=== PATIENT | female | born 1965 | race Caucasian/White ===

== ENCOUNTER 2018-05-21 07:41 | Emergency (ER) | payer MEDICAID, SELFPAY ==
[2018-05-21 07:45] VITALS: BP 121/62; PULSE 96; RESP 18; TEMP 36.5; O2SAT 100
[2018-05-21] MEDS: Penicillin V POTASSIUM 500 MG TAB PO (08:22)
--- NOTE | 2018-05-21 08:37 | ED.GENADUL_ITS ---
Discharge Plan Disposition Patient Disposition: HOME Condition: Stable Discharge Details Chief Complaint: DentalOral Clinical Impression: Swelling of left side of face, Pain, dental, Dental caries, Dental infection Primary Care Provider: NONE,NONE ED Provider: Ariela Melo Home Meds and New Rx's Prescriptions: New penicillin V potassium 500 mg tablet 500 mg PO QID 7 Days Qty: 28 RF: 0 Discharge Instructions Instructions: Dental Abscess (ED), Dental Caries (ED), Toothache (ED) Additional Instructions: You appear to have a dental infection but there is no obvious abscess on exam today. Your facial swelling is likely due to a dental infection. Another possibility could be a stone within a salivary duct in your face. Also use lemon drops to see if this helps with any left-sided facial swelling which can help stimulate salivary gland to produce saliva which can expel a possible stone. Take the antibiotics until finished. Alternate Tylenol and Motrin as needed and directed for pain. Safely wean yourself off of alcohol under the direction of a physician or outpatient rehab. Follow-up with a primary care doctor, dentist, and outpatient rehab as directed by care management. Return immediately to the emergency department with any worsening or new concerning symptoms such as fever, difficulty swallowing, or breathing. Discharge Data Discharge Physician: Ariela Melo Medical Decision Making Patient is a 53-year-old female with a history of daily alcohol abuse and tobacco abuse who presents with dental pain ?1 month and left-sided facial swelling and pain for the past 2 weeks. Vitals stable on arrival. No fever. Patient appears nontoxic, airway intact, speaking in full sentences, no trismus. She appears disheveled and older than stated age. She has moderate edema, induration and tenderness to palpation of left side of face overlying mandible. There is no submandibular swelling, induration. There is no obvious dental abscess noted but there is extensive dental caries with tenderness to palpation of left upper and lower jaw. Diagnosis likely includes dental infection or blocked salivary duct stone. I suspect more likely a dental infection. No evidence of Byron's angina. Due to patient's significant left facial swelling, I suggested IV, lab work and CT imaging but patient is refusing and is just requesting antibiotics at this time. She is also requesting a prescription for Tylenol with Codeine. I expressed my concern about alcohol intake and narcotics and will give 1 dose of Tylenol with Codeine here as well as a dose of penicillin. Patient does not have a dentist or primary care doctor. Patient had requested to speak with social work regarding payment. Will have care management discuss with patient in the emergency department regarding follow-up with a primary care doctor, dentist, and outpatient rehab if pt desires. We discussed the dangers of abruptly stopping alcohol and the need to safely wean herself off under the direction of his physician or outpatient rehab. Patient was instructed to return immediately to the emergency department with any worsening symptoms such as fever, difficulty swallowing or breathing. Prescription for penicillin given for home. Patient was also instructed to use lemon drops to see if this helps with left-sided facial swelling. HPI General Mode of arrival: ambulatory . Date/Time Provider Initiated Documentation: 05/21/18 07:43 . Limitations to Documentation: no limitations . Information obtained by: patient . HPI Narrative: Patient is a 53-year-old female with no known past medical history presents with left upper and lower dental pain for the past month, and left-sided facial swelling and pain for the past 2 weeks. She states she has been eating and drinking normally and denies recent fever. She states she only came here for antibiotics. She does admit to drinking 32 beers every 3 days and soaking 2 packs of cigarettes daily. She does not have a primary care doctor or a dentist. History: None Surgical history: None Social history: Smokes tobacco, 2 packs daily, daily alcohol use, drinks a 32 case of beer every 3 days, denies drugs Medications: None regularly, aspirin occasionally for pain Allergies: Negative PCP: None Dentist: None Related Data Previous Rx's Medication Instructions Recorded penicillin V potassium 500 mg PO QID 7 Days #28 tab 05/21/18 Allergies Allergy/AdvReac Type Severity Reaction Status Date / Time No Known Allergies Allergy Unverified 05/21/18 07:52 General Stated Complaint: DentalOral LILLIAN: 3 Review of Systems Review of Systems All systems reviewed & are unremarkable except as noted in HPI and below Constitutional Denies chills, Denies excessive sweating, Denies fatigue, Denies fever(s), Denies weakness and Denies weight loss Eyes Patient Reports system reviewed and no additional complaints, except as docu and Denies blurry vision ENT Reports dental pain, Denies vertigo, Denies dizziness, Denies otalgia, Reports facial pain, Denies mouth lesions, Denies nasal congestion, Denies nasal discharge, Denies neck pain, Denies sore throat, Denies throat swelling and Denies tongue swelling Cardiovascular Denies chest pain, Denies syncope, Denies rapid heart rate and Denies dyspnea Respiratory Denies dyspnea Gastrointestinal Denies abdominal pain, Denies diarrhea and Denies vomiting Genitourinary Denies hematuria, Denies dysuria and Denies flank pain Musculoskeletal Denies back pain, Denies joint swelling and Denies neck pain Integumentary/Breasts Denies lesions and Denies rash Neurologic Denies behavioral changes, Denies confusion, Denies vertigo, Denies dizziness, Denies syncope and Denies weakness Psychiatric Denies behavioral changes, Denies confusion and Denies depression Endocrine Denies excessive sweating and Denies fatigue Hematologic/Lymphatic Denies easy bruising and Denies lymphadenopathy Allergic/Immunologic Denies throat swelling and Denies tongue swelling PFS Social History Smoking/Tobacco Use Status: Current every day Exam Const General: cooperative, no acute distress and disheveled Nutritional Appearance: other (Older than stated age) Orientation: alert, awake and oriented x3 HENMT Head: normal to inspection Ears: hearing grossly normal bilaterally, external ears normal and TM's normal bilaterally General nose exam: external nose normal Face and sinus: other (Moderate edema, induration and tenderness to palpation of left side of face extending from just below left TMJ to left angle and ramus of mandible. There is no erythema, fluctuance or rash noted.) Mouth: oropharynx normal, moist mucous membranes and malodorous breath Teeth and gingiva: other (Extensive dental caries throughout. Multiple missing teeth on left upper and left lower. There is tenderness to palpation of tooth approximate #11 and 23 with mild edema around tooth but no obvious discrete abscess. There is edema noted on the left inner buccal mucosa but no obvious abscess. ) Throat: posterior oropharynx normal Eyes General: appearance normal, both eyes and all related structures Eyelids: eyelids normal Pupils: PERRL EOM: EOM intact bilaterally Neck Neck: normal visual inspection, full ROM, no meningeal signs, trachea midline, supple, no anterior neck swelling and No submandibular swelling Thyroid: not firm and no masses Lymphatic: no lymphadenopathy noted Chest Chest: normal inspection of the chest Resp Effort & Inspection: normal respiratory effort and able to speak in complete sentences Auscultation: clear to auscultation bilaterally Cardio Rate: regular rate Rhythm: regular rhythm GI Inspection: normal to inspection Skin General skin exam: no rashes or lesions noted Neuro General: alert, awake and oriented x3 Cognition: normal cognition Speech: speech normal Extrem General: normal to inspection, full ROM and normal capillary refill Psych Appearance: grossly normal Mental Status: mental status grossly normal Speech and Movement: speech and movement normal Affect: normal affect Thought Process: normal Course Vital Signs Temperature 97.7 F 05/21/18 07:45 Pulse 96 H 05/21/18 07:45 Respiratory Rate 18 05/21/18 07:45 Blood Pressure 121/62 05/21/18 07:45 Pulse Oximetry 100 05/21/18 07:45 Temperature 97.7 F 05/21/18 07:45 Pulse 96 H 05/21/18 07:45 Respiratory Rate 18 05/21/18 07:45 Blood Pressure 121/62 05/21/18 07:45 Pulse Oximetry 100 05/21/18 07:45
--- NOTE | 2018-05-21 08:42 | PDOC.ERCMPRO ---
- If Service Date Differs Date of service: 05/21/18 Time of Service: 08:42 Care Management Progress Note DOMINIQUE received notification from KEATON León RN, that Harmony is in the ER due to dental pain and that she has no insurance. CM met with Harmony and her SO. Harmony states that she has not had insurance since she moved back to [place] from [place] 16 years ago. CM discussed [facility] with Harmony to assist with applying for [employer], Harmony is agreeable to this. CM discussed Penicillin prescription, Harmony' SO states that they can afford to pay for this out of pocket today. CM stressed to Harmony going to [facility] on Wednesday to discuss insurance options so that she can then go to the dentist once she has insurance. Harmony is agreeable with the above plan. DOMINIQUE spoke with KEATON León RN, regarding the above.
== END 2018-05-21 08:45 | disposition home or self-care (01) ==
PROVIDERS: Emergency Provider Physician Assistant
DX: R22.0 Localized swelling, mass and lump, head (principal); K04.7 Periapical abscess without sinus; K02.9 Dental caries, unspecified
CPT/HCPCS: 99283

== ENCOUNTER 2018-06-29 16:04 | Emergency (ER) | payer MEDICAID, SELFPAY ==
[2018-06-29 16:09] VITALS: BP 174/115; PULSE 122; RESP 22; TEMP 36.2; O2SAT 99
--- NOTE | 2018-06-29 16:52 | W.ED.GENAD ---
Discharge Plan Disposition Patient Disposition: HOME Condition: Poor Discharge Details Chief Complaint: Cellulitis Clinical Impression: Facial swelling, Lymphadenopathy Primary Care Provider: NONE,NONE ED Provider: Kaya Henry Home Meds and New Rx's Prescriptions: New clindamycin HCl 150 mg capsule 450 mg PO TID Qty: 63 RF: 0 oxycodone 5 mg capsule 5 mg PO Q6H Qty: 10 RF: 0 Continue acetaminophen [Tylenol Extra Strength] 500 mg Tablet 500 mg PO DAILY RF: 0 ibuprofen [Advil] 200 mg Tablet 800 mg PO DAILY RF: 0 Discharge Instructions Additional Instructions: Encourage hydration. You may continue with Tylenol and/or ibuprofen as needed for discomfort. Augment this with the oxycodone as prescribed. Please take this only as prescribed. Please call Dr. Wilson first thing tomorrow morning to schedule follow-up appointment and biopsy as recommended. If you develop fever/chills, difficulty breathing, difficulty swallowing or other new/worsening symptoms please seek care urgently once again. Referrals: Ivan Wilson [ [facility] STAFF PHYSICIAN] - ([phone]) Medical Decision Making Patient 53-year-old female presenting today with chief complaint left-sided facial swelling and pain. She reports that symptoms began in November or December of this year. States that she has had diffuse left lower dental pain. Was seen in the emergency department almost 2 months ago at which time the patient had notable facial swelling and there is concern for possible dental infection. She is placed on penicillin. Did not immediately follow up. However, when she saw her dentist a few weeks ago, they are quite concerned with her findings in the posterior lower dentition and had concern for possible malignancy. They referred the patient to an oral surgeon at [facility]. She reports that the oral surgeon at [facility] obtained a CT scan of her head or neck and recommended biopsy of the area. Patient subsequently canceled the biopsy and has not been wanting to go forward with surgical intervention. No definitive diagnosis has been made as of yet. She presents to the ER today with a notable increase in swelling on the left side of her face. Patient is quite tender over this area. She is very unusual shaped area of swelling with a smaller focal area of whitening with a small white spots on the outside. This area is not fluctuant but seems rather firm. Patient is incredibly tender. The area is not warm. She is afebrile. Reports she is been afebrile at home. Denies any systemic signs of illness. Given the length of symptoms, I am concerned that this is not infection you may be malignancy as the patient is a heavy smoker. Plan to obtain the reports from [facility] and review. Patient does have trismus but posterior oropharynx is unremarkable. I do not appreciate any unilateral swelling, tonsils are normal, uvula is midline. Patient's been swallowing well, handling secretions. Denies any pain in her throat, no shortness of breath or difficulty swallowing. No sublingual swelling or abnormality noted. Reviewed Dr. Wilson's note. Patient was seen on 06/03/2018 by oral surgeon. At that point, he reported that swelling started 3 weeks prior on the left side. He reports that the antibiotics that had been trialed by the dentist did seem to help with her swelling. Patient described at that time that her trismus has improved after beginning the antibiotics reviewed his physical exam findings which seem quite similar to what I am noting today although today, patient's facial swelling seems to be increased particularly with this focal area of whitening. He advised at that point and that findings are suggestive of neoplastic and bony invasion and it was at that point that the CT was obtained. CT impression that was obtained on the same day reviewed by radiologist. They advised that it is suggestive of highly destructive process involving the left mandible with adjacent soft tissue expansion centered about the retromolar trigone region. 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 This process is highly concerning for aggressive neoplasm although infection and superimposed infection not excluded. They do note asymmetry of the prominent left-sided lymph nodes which may be reactive or represent metastatic disease Spoke with Dr. Wilson's nurse who is able to be in contact with him. Physician is currently in the operating room. She relayed my concerns to the physician who advised beginning the patient again on antibiotics. Patient had canceled her biopsy that had been recommended by him. He advised the patient needs to come down as soon as possible for biopsy for definitive diagnosis. We will place the patient back on antibiotics as this seemed to have helped with symptomatic management. At this point, I am concerned primarily for neoplastic disease given the chronicity of her symptoms and the patient is otherwise presenting well. She appears to have a firm swollen area consistent with neoplastic disease on exam. However, as a CT suggest, she may also have a superimposed infection for which she will begin her on clindamycin. Patient does not have a primary care, I have asked her acute care nurse help facilitate follow-up. I have also asked the patient to call Dr. Wilson's office tomorrow. She and I discussed the findings of the CT scan as these had not been relayed to her as of yet. She is in agreement with contacting him and reports that she will not delay this any longer. She is given strict return precautions, particularly for spreading of the swelling. All of her questions and concerns were addressed and she is in agreement this plan. Patient is requesting pain medication she reports that Tylenol and ibuprofen is not working well for discomfort. Given the findings of the CT and patient's physical exam findings, I feel that narcotics are appropriate at this point. Patient will be given a small prescription for oxycodone. She is given strict usage instructions. Patient did sign a narcotic agreement form HPI General Mode of arrival: ambulatory. Date/Time Provider Initiated Documentation: 06/29/18 16:17. Limitations to Documentation: no limitations. Information obtained by: patient and family. History of Present Illness 53 year old F presents to the emergency department with the chief complaint of left sided facial pain and swelling, described as moderate, Quality is described as stabbing and aching, and is localized to the face. Patient reports no radiation. Patient started experiencing this month(s) (began in November) and it has been constant. No relieving factors improve symptom(s), Movement worsens symptoms (opening of mouth, chewing) . Patient notes no other symptoms.; denies confusion, chest pain, cough, diaphoresis, fever/chills, headaches, loss of appetite, malaise, nausea/vomiting, rash, shortness of breath, syncope and weakness. Patient did receive the following treatments prior to arrival, other (has been on multiple rounds of antibiotics) Related Data Home Medications Medication Instructions Recorded Confirmed acetaminophen [Tylenol Extra 500 mg PO DAILY 06/29/18 06/29/18 Strength] clindamycin HCl 450 mg PO TID #63 cap 06/29/18 ibuprofen [Advil] 800 mg PO DAILY 06/29/18 06/29/18 oxycodone 5 mg PO Q6H #10 cap 06/29/18 Previous Rx's Medication Instructions Recorded clindamycin HCl 450 mg PO TID #63 cap 06/29/18 oxycodone 5 mg PO Q6H #10 [facility] 06/29/18 Allergies Allergy/AdvReac Type Severity Reaction Status Date / Time No Known Allergies Allergy Unverified 05/21/18 07:52 General Stated Complaint: Cellulitis LILLIAN: 3 Review of Systems Constitutional Reports as per HPI and Denies headache(s) Eyes Denies change in vision, Denies eye discharge and Denies irritation ENT Reports as per HPI, Denies change in voice, Denies ear discharge, Reports otalgia, Reports facial pain, Denies headache(s), Denies hearing loss, Denies lip swelling, Reports mouth lesions, Denies nasal congestion, Denies nasal discharge, Denies nasal obstruction, Denies neck mass, Reports neck pain, Denies nose pain, Denies sinus pain, Denies sinus pressure, Denies sore throat, Denies throat swelling and Denies tongue swelling Cardiovascular Denies chest pain, Denies lightheadedness and Denies palpitations Musculoskeletal Reports neck pain Neurologic Denies headache(s) Endocrine Denies palpitations Allergic/Immunologic Denies lip swelling, Denies throat swelling and Denies tongue swelling Exam Const General: cooperative, no acute distress, well developed and anxious Nutritional Appearance: average body habitus and well nourished Orientation: alert and awake [facility] Head: normal to inspection Ears: hearing grossly normal bilaterally, external ears normal and TM's normal bilaterally General nose exam: external nose normal and nares normal Face and sinus: abnormal facial exam (Patient has notable swelling in the left side of the face with posterior over the TMJ and parotid gland. Tissue is erythematous. Patient has a focal area more raised tissue approximately 2 cm in diameter. This is white with small copper etcher raised areas scattered about the focal area. No fluctuance), sinuses nontender, no crepitus, no ecchymosis, erythema, no fluctuance, no sinus tenderness and No dry mucous membranes Face images: 1. area of swelling 2. focal area of blanching with several white raised areas centrally Mouth: lip normal, tongue normal, moist mucous membranes abnormal, no muffled voice and trismus Teeth and gingiva: abnormal dentition (Patient has globally poor dentition. Gums have receded greatly over the front lower dentition where patient is also endorsing discomfort.) Throat: posterior oropharynx normal, tonsils normal and uvula midline Eyes General: appearance normal, both eyes and all related structures Neck Neck: lymphadenopathy noted (Patient has Palpable lymphadenopathy along the left side) Resp Effort & Inspection: normal respiratory effort, able to speak in complete sentences and no respiratory distress Auscultation: clear to auscultation bilaterally, no rales, no rhonchi and no wheezes Cardio Rate: regular rate Rhythm: regular rhythm Heart Sounds: S1 normal and S2 normal Skin General skin exam: rashes and/or lesions noted (As above) Neuro General: alert and awake Cognition: normal cognition Speech: speech normal Gait: normal gait Psych Appearance: grossly normal and well kempt Mental Status: mental status grossly normal Speech and Movement: delayed speech Affect: anxious affect Course Vital Signs Temperature 36.2 C L 06/29/18 16:09 Pulse 122 H 06/29/18 16:09 Respiratory Rate 22 06/29/18 16:09 Blood Pressure 174/115 H 06/29/18 16:09 Pulse Oximetry 99 06/29/18 16:09 Temperature 36.2 C L 06/29/18 16:09 Temperature Source Tympanic 06/29/18 16:09 Pulse 122 H 06/29/18 16:09 Respiratory Rate 22 06/29/18 16:09 Respiratory Effort 06/29/18 16:16 Blood Pressure 174/115 H 06/29/18 16:09 Pulse Oximetry 99 06/29/18 16:09 Oxygen Delivery Method Room Air 06/29/18 16:09 Oxygen Flow Rate 0 06/29/18 16:09
[2018-06-29 17:27] VITALS: BP 133/97; PULSE 129; RESP 18; TEMP 36.8; O2SAT 99
--- NOTE | 2018-06-30 13:57 | PDOC.ERCMPRO ---
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 Referral faxed to [facility].
--- NOTE | 2018-06-30 13:58 | CMPROGNOTE_ITS ---
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 Referral faxed to [facility].
--- NOTE | 2018-07-01 14:16 | PDOC.ERCMPRO ---
Care Management Progress Note DOMINIQUE received call from Tin Muro advocating for Harmony to have PCP follow up. He shared concerns around Harmony's diagnosed aggressive tumor and reported follow up with [facility] was not scheduled until August. DOMINIQUE reviewed Allison: ED CM note and spoke with [facility] who reported Harmony has a scheduled appointment for 07/06/18@1040. Lead Pharmacy Technician also advised new patient paperwork had been mailed but phone contact numbers listed on demographics were unsuccessful. DOMINIQUE provided Tin's contact number [phone]. DOMINIQUE then called Harmony and Tin to confirm appointment and advise of paperwork and updated contacts.
--- NOTE | 2018-07-01 15:44 | CMPROGNOTE_ITS ---
Care Management Progress Note DOMINIQUE received call from Tin Muro advocating for Harmony to have PCP follow up. He shared concerns around Harmony's diagnosed aggressive tumor and reported follow up with [facility] was not scheduled until August. DOMINIQUE reviewed Allison: ED CM note and spoke with [facility] who reported Harmony has a scheduled appointment for 07/06/18@1040. Marker Assembler also advised new patient paperwork had been mailed but phone contact numbers listed on demographics were unsuccessful. DOMINIQUE provided Tin's contact number [phone]. DOMINIQUE then called Harmony and Tin to confirm appointment and advise of paperwork and updated contacts.
== END 2018-06-29 17:47 | disposition home or self-care (01) ==
LOC: ER 17:35
PROVIDERS: Emergency Provider Physician Assistant
DX: R22.0 Localized swelling, mass and lump, head (principal); L04.9 Acute lymphadenitis, unspecified
CPT/HCPCS: 99283

== ENCOUNTER 2018-07-18 16:49 | Outpatient (REF) | payer MEDICAID, SELFPAY ==
[2018-07-18 19:26] LABS: HCT 36.6 % (36.0-46.0); Mean Corp. HGB Concentration 32.8 g/dL (32.0-36.0); Mean Corpuscular Hemoglobin 32.5 pg (27.0-33.0); Mean Corpuscular Volume 99.2 fL (80-95); Mean Platelet Volume 10.2 fL (8.0-11.0); Platelet Count 277 x1000/uL (130-400); RBC 3.69 m/cumm (4.00-5.20); RBC Distribution Width 16.4 % (11.7-14.6); White Blood Cell Count 7.73 k/cumm (4.4-10.8)
[2018-07-18 20:17] LABS: ALT 13 U/L (12-78); AST 15 U/L (15-37); Albumin 3.4 g/dL (3.4-5.0); Alkaline Phosphatase 69 U/L (46-116); Anion Gap 13.8 mmol/L (3-11); BUN 4 mg/dL (7-18); Bilirubin, Total 0.2 mg/dL (0.2-1.0); CO2 22.2 mmol/L (21.0-32.0); CREATININE 0.62 mg/dL (0.55-1.02); Calcium 9.1 mg/dL (8.5-10.1); Chloride 101 mmol/L (98-107); Folate 2.9 ng/mL (8.6-20.0); Glucose 73 mg/dL (70-100); Sodium 137 mmol/L (136-145); Total Protein 7.3 g/dL (6.4-8.2); Vitamin B12 455 pg/mL (193-986)
[2018-07-20 09:42] LABS: Hepatitis C Ab w Rflx HCV PCR Negative (NEGAT)
[2018-07-20 10:37] LABS: HBs Antibody, Quant <3.1 mIU/mL; Hepatitis B Surface Ab Negative; Hepatitis B Surface Ag Negative (NEGAT)
== END 2018-07-18 17:09 ==
LOC: NCHCN 16:49
PROVIDERS: PCP Family Medicine; Visit Provider Family Medicine
DX: C06.9 Malignant neoplasm of mouth, unspecified (principal); F10.10 Alcohol abuse, uncomplicated; Z01.818 Encounter for other preprocedural examination; Z11.59 Encounter for screening for other viral diseases; F17.200 Nicotine dependence, unspecified, uncomplicated
CPT/HCPCS: 80053; 85027; 86706; 86803; 87340; 82607; 82746

== ENCOUNTER 2018-07-20 00:31 | Outpatient (CLI) | payer MEDICAID, SELFPAY ==
--- NOTE | 2018-07-20 13:08 | DI.RAD_ITS ---
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 The lungs are clear. The mediastinal structures and pleura appear intact. CONCLUSION: Normal chest.
== END 2018-07-20 00:51 ==
PROVIDERS: PCP Family Medicine; Visit Provider Family Medicine
DX: C06.9 Malignant neoplasm of mouth, unspecified (principal); F17.200 Nicotine dependence, unspecified, uncomplicated; Z01.818 Encounter for other preprocedural examination
CPT/HCPCS: 71046

== ENCOUNTER 2018-10-18 00:35 | Outpatient (RCR) | payer MEDICAID, SELFPAY ==
[2018-10-18 08:07] LABS: Abs Immature Grans 0.04 k/cumm (0.0-0.09); Absolute Basophil Count 0.01 k/cumm (0.0-0.2); Absolute Eosinophil Count 0.18 k/cumm (0.0-0.7); Absolute Lymphocyte Count 1.24 k/cumm (1.2-3.4); Absolute Monocyte Count 0.83 k/cumm (0.11-0.7); Absolute Neutrophil Count 11.81 k/cumm (1.2-6.7); Basophils % 0.1; Eosinophils % 1.3; HCT 36.9 % (36.0-46.0); HGB 11.9 g/dL (12.0-15.5); Immature Grans % 0.3; Lymphocytes % 8.8; Mean Corp. HGB Concentration 32.2 g/dL (32.0-36.0); Mean Corpuscular Hemoglobin 31.6 pg (27.0-33.0); Mean Corpuscular Volume 98.1 fL (80-95); Mean Platelet Volume 10.1 fL (8.0-11.0); Monocytes % 5.9; Neutrophils % 83.6; Platelet Count 412 x1000/uL (130-400); RBC 3.76 m/cumm (4.00-5.20); RBC Distribution Width 13.1 % (11.7-14.6); White Blood Cell Count 14.13 k/cumm (4.4-10.8)
[2018-10-18 08:31] LABS: ALT 10 U/L (12-78); AST 16 U/L (15-37); Albumin 2.4 g/dL (3.4-5.0); Alkaline Phosphatase 90 U/L (46-116); Anion Gap 9.3 mmol/L (3-11); BUN 4 mg/dL (7-18); Bilirubin, Total 0.4 mg/dL (0.2-1.0); CO2 27.7 mmol/L (21.0-32.0); CREATININE 0.63 mg/dL (0.55-1.02); Calcium 9.2 mg/dL (8.5-10.1); Chloride 98 mmol/L (98-107); Glucose 164 mg/dL (70-100); Magnesium 1.6 mg/dL (1.8-2.4); Potassium 3.7 mmol/L (3.5-5.1); Sodium 135 mmol/L (136-145); Total Protein 7.8 g/dL (6.4-8.2)
[2018-10-18] MEDS: Normal Saline Flush 10 ML SYR IVP (08:45)
== END 2018-10-27 23:59 | disposition home or self-care (01) ==
LOC: INF 00:35
PROVIDERS: PCP Family Medicine; Visit Provider Nurse Practitioner Adult Health
DX: C06.0 Malignant neoplasm of cheek mucosa (principal); Z45.2 Encounter for adjustment and management of vascular access device
CPT/HCPCS: 36591; 80053; 83735; 85025

== ENCOUNTER 2018-11-21 01:28 | Outpatient (RCR) | payer MEDICAID, SELFPAY ==
[2018-10-28] MEDS: Normal Saline Flush 10 ML SYR IVP (11:05)
[2018-10-28 12:11] LABS: Abs Immature Grans 0.02 k/cumm (0.0-0.09); Absolute Basophil Count 0.01 k/cumm (0.0-0.2); Absolute Eosinophil Count 0.03 k/cumm (0.0-0.7); Absolute Monocyte Count 0.35 k/cumm (0.11-0.7); Absolute Neutrophil Count 8.88 k/cumm (1.2-6.7); Basophils % 0.1; Eosinophils % 0.3; HCT 31.3 % (36.0-46.0); HGB 10.2 g/dL (12.0-15.5); Immature Grans % 0.2; Lymphocytes % 6.1; Mean Corp. HGB Concentration 32.6 g/dL (32.0-36.0); Mean Corpuscular Hemoglobin 31.5 pg (27.0-33.0); Mean Corpuscular Volume 96.6 fL (80-95); Mean Platelet Volume 10.3 fL (8.0-11.0); Monocytes % 3.5; Neutrophils % 89.8; Platelet Count 141 x1000/uL (130-400); RBC 3.24 m/cumm (4.00-5.20); RBC Distribution Width 12.7 % (11.7-14.6); White Blood Cell Count 9.89 k/cumm (4.4-10.8)
[2018-10-28 12:24] LABS: ALT 27 U/L (12-78); AST 15 U/L (15-37); Albumin 2.5 g/dL (3.4-5.0); Alkaline Phosphatase 80 U/L (46-116); Anion Gap 8.7 mmol/L (3-11); BUN 5 mg/dL (7-18); Bilirubin, Total 0.5 mg/dL (0.2-1.0); CO2 27.3 mmol/L (21.0-32.0); CREATININE 0.42 mg/dL (0.55-1.02); Calcium 8.9 mg/dL (8.5-10.1); Chloride 95 mmol/L (98-107); Glucose 125 mg/dL (70-100); Magnesium 1.5 mg/dL (1.8-2.4); Potassium 3.6 mmol/L (3.5-5.1); Sodium 131 mmol/L (136-145); Total Protein 6.8 g/dL (6.4-8.2)
[2018-11-04] MEDS: Normal Saline Flush 10 ML SYR IVP (13:40)
[2018-11-04] MEDS: Heparin 500 UNITS/5 ML SYRINGE IV (13:40)
[2018-11-04 14:07] LABS: Absolute Monocyte Count 0.47 k/cumm (0.11-0.7); HCT 30.9 % (36.0-46.0); HGB 9.7 g/dL (12.0-15.5); Mean Corp. HGB Concentration 31.4 g/dL (32.0-36.0); Mean Corpuscular Hemoglobin 30.8 pg (27.0-33.0); Mean Corpuscular Volume 98.1 fL (80-95); Mean Platelet Volume 9.9 fL (8.0-11.0); RBC 3.15 m/cumm (4.00-5.20); RBC Distribution Width 13.3 % (11.7-14.6); White Blood Cell Count 2.46 k/cumm (4.4-10.8)
[2018-11-04 14:25] LABS: ALT 15 U/L (12-78); AST 14 U/L (15-37); Albumin 2.9 g/dL (3.4-5.0); Alkaline Phosphatase 75 U/L (46-116); Anion Gap 8.6 mmol/L (3-11); BUN 8 mg/dL (7-18); Bilirubin, Total 0.4 mg/dL (0.2-1.0); CO2 27.4 mmol/L (21.0-32.0); CREATININE 0.49 mg/dL (0.55-1.02); Calcium 9.2 mg/dL (8.5-10.1); Chloride 97 mmol/L (98-107); Glucose 94 mg/dL (70-100); Magnesium 1.6 mg/dL (1.8-2.4); Potassium 3.9 mmol/L (3.5-5.1); Sodium 133 mmol/L (136-145); Total Protein 7.2 g/dL (6.4-8.2)
[2018-11-04 14:48] LABS: Absolute Eosinophil Count 0.05 k/cumm (0.0-0.7); Absolute Lymphocyte Count 0.89 k/cumm (1.2-3.4); Absolute Neutrophil Count 1.03 k/cumm (1.2-6.7); Atypical Lymphocytes % 2
[2018-11-04 14:49] LABS: Diff Comment Manual Differential; Platelet Count 258 x1000/uL (130-400); Polychromasia Present
[2018-11-09] MEDS: Normal Saline Flush 10 ML SYR IVP (09:55)
[2018-11-09 10:33] LABS: Abs Immature Grans 0.07 k/cumm (0.0-0.09); Absolute Basophil Count 0.01 k/cumm (0.0-0.2); Absolute Eosinophil Count 0.14 k/cumm (0.0-0.7); Absolute Lymphocyte Count 0.86 k/cumm (1.2-3.4); Absolute Monocyte Count 0.95 k/cumm (0.11-0.7); Absolute Neutrophil Count 3.29 k/cumm (1.2-6.7); Basophils % 0.2; Eosinophils % 2.6; HCT 32.9 % (36.0-46.0); HGB 10.4 g/dL (12.0-15.5); Immature Grans % 1.3; Lymphocytes % 16.2; Mean Corp. HGB Concentration 31.6 g/dL (32.0-36.0); Mean Corpuscular Hemoglobin 31.4 pg (27.0-33.0); Mean Corpuscular Volume 99.4 fL (80-95); Monocytes % 17.9; Neutrophils % 61.8; Platelet Count 436 x1000/uL (130-400); RBC 3.31 m/cumm (4.00-5.20); RBC Distribution Width 14.1 % (11.7-14.6); White Blood Cell Count 5.32 k/cumm (4.4-10.8)
[2018-11-09 11:40] LABS: ALT 13 U/L (12-78); AST 13 U/L (15-37); Albumin 3.1 g/dL (3.4-5.0); Alkaline Phosphatase 81 U/L (46-116); Anion Gap 11.1 mmol/L (3-11); BUN 8 mg/dL (7-18); Bilirubin, Total 0.2 mg/dL (0.2-1.0); CO2 26.9 mmol/L (21.0-32.0); Calcium 9.6 mg/dL (8.5-10.1); Chloride 97 mmol/L (98-107); Glucose 165 mg/dL (70-100); Magnesium 1.7 mg/dL (1.8-2.4); Potassium 4.1 mmol/L (3.5-5.1); Sodium 135 mmol/L (136-145); Total Protein 7.2 g/dL (6.4-8.2)
[2018-11-17] MEDS: Normal Saline Flush 10 ML SYR IVP (11:10)
[2018-11-17 11:33] LABS: Abs Immature Grans 0.03 k/cumm (0.0-0.09); Absolute Basophil Count 0.02 k/cumm (0.0-0.2); Absolute Eosinophil Count 0.01 k/cumm (0.0-0.7); Absolute Lymphocyte Count 0.74 k/cumm (1.2-3.4); Absolute Monocyte Count 0.62 k/cumm (0.11-0.7); Absolute Neutrophil Count 5.43 k/cumm (1.2-6.7); Basophils % 0.3; Eosinophils % 0.1; HCT 30.9 % (36.0-46.0); HGB 9.9 g/dL (12.0-15.5); Immature Grans % 0.4; Lymphocytes % 10.8; Mean Corpuscular Volume 96.9 fL (80-95); Mean Platelet Volume 10.6 fL (8.0-11.0); Monocytes % 9.1; Neutrophils % 79.3; RBC 3.19 m/cumm (4.00-5.20); White Blood Cell Count 6.85 k/cumm (4.4-10.8)
[2018-11-17 11:46] LABS: ALT 30 U/L (12-78); AST 16 U/L (15-37); Albumin 3.6 g/dL (3.4-5.0); Alkaline Phosphatase 71 U/L (46-116); Anion Gap 11.6 mmol/L (3-11); BUN 6 mg/dL (7-18); Bilirubin, Total 0.4 mg/dL (0.2-1.0); CO2 22.4 mmol/L (21.0-32.0); CREATININE 0.58 mg/dL (0.55-1.02); Calcium 9.4 mg/dL (8.5-10.1); Chloride 100 mmol/L (98-107); Diff Comment RBC Morph Reviewed; Glucose 123 mg/dL (70-100); Magnesium 1.2 mg/dL (1.8-2.4); Platelet Count 222 x1000/uL (130-400); Potassium 3.6 mmol/L (3.5-5.1); RBC Morphology Normal; Sodium 134 mmol/L (136-145); Total Protein 7.4 g/dL (6.4-8.2)
[2018-11-21] MEDS: Normal Saline Flush 10 ML SYR IVP (08:45)
[2018-11-21] MEDS: Heparin 500 UNITS/5 ML SYRINGE IV (08:45)
[2018-11-21 09:13] LABS: Absolute Basophil Count 0.01 k/cumm (0.0-0.2); Absolute Eosinophil Count 0.01 k/cumm (0.0-0.7); Absolute Lymphocyte Count 0.61 k/cumm (1.2-3.4); Absolute Monocyte Count 0.31 k/cumm (0.11-0.7); Absolute Neutrophil Count 4.08 k/cumm (1.2-6.7); Basophils % 0.2; Eosinophils % 0.2; HCT 28.5 % (36.0-46.0); HGB 9.1 g/dL (12.0-15.5); Lymphocytes % 12.2; Mean Corp. HGB Concentration 31.9 g/dL (32.0-36.0); Mean Corpuscular Hemoglobin 31.6 pg (27.0-33.0); Mean Platelet Volume 10.5 fL (8.0-11.0); Monocytes % 6.2; Neutrophils % 81.2; Platelet Count 130 x1000/uL (130-400); RBC 2.88 m/cumm (4.00-5.20); RBC Distribution Width 14.9 % (11.7-14.6); White Blood Cell Count 5.02 k/cumm (4.4-10.8)
[2018-11-21 09:27] LABS: ALT 19 U/L (12-78); AST 11 U/L (15-37); Albumin 2.7 g/dL (3.4-5.0); Alkaline Phosphatase 66 U/L (46-116); Anion Gap 12.5 mmol/L (3-11); BUN 9 mg/dL (7-18); Bilirubin, Total 0.5 mg/dL (0.2-1.0); CO2 23.5 mmol/L (21.0-32.0); CREATININE 0.57 mg/dL (0.55-1.02); Calcium 9.2 mg/dL (8.5-10.1); Chloride 100 mmol/L (98-107); Glucose 145 mg/dL (70-100); Magnesium 1.4 mg/dL (1.8-2.4); Sodium 136 mmol/L (136-145)
== END 2018-11-27 23:59 | disposition home or self-care (01) ==
LOC: INF 01:28
PROVIDERS: PCP Family Medicine; Visit Provider Nurse Practitioner Adult Health
DX: C06.0 Malignant neoplasm of cheek mucosa (principal); Z45.2 Encounter for adjustment and management of vascular access device
CPT/HCPCS: 36591; 80053; 83735; 85025

== ENCOUNTER 2018-12-19 09:00 | Outpatient (RCR) | payer MEDICAID, SELFPAY ==
[2018-11-30] MEDS: Normal Saline Flush 10 ML SYR IVP (08:00)
[2018-11-30 08:36] LABS: Absolute Basophil Count 0.01 k/cumm (0.0-0.2); Absolute Eosinophil Count 0.15 k/cumm (0.0-0.7); Absolute Lymphocyte Count 0.47 k/cumm (1.2-3.4); Absolute Monocyte Count 0.44 k/cumm (0.11-0.7); Absolute Neutrophil Count 1.24 k/cumm (1.2-6.7); Basophils % 0.4; Eosinophils % 6.5; HCT 31.5 % (36.0-46.0); Lymphocytes % 20.3; Mean Corp. HGB Concentration 31.7 g/dL (32.0-36.0); Mean Corpuscular Hemoglobin 32.4 pg (27.0-33.0); Mean Corpuscular Volume 101.9 fL (80-95); Mean Platelet Volume 10.2 fL (8.0-11.0); Neutrophils % 53.8; Platelet Count 141 x1000/uL (130-400); RBC 3.09 m/cumm (4.00-5.20); White Blood Cell Count 2.31 k/cumm (4.4-10.8)
[2018-11-30 08:51] LABS: ALT 10 U/L (12-78); AST 8 U/L (15-37); Albumin 3.3 g/dL (3.4-5.0); Alkaline Phosphatase 68 U/L (46-116); BUN 11 mg/dL (7-18); Bilirubin, Total 0.4 mg/dL (0.2-1.0); CREATININE 0.64 mg/dL (0.55-1.02); Calcium 9.2 mg/dL (8.5-10.1); Chloride 102 mmol/L (98-107); Glucose 205 mg/dL (70-100); Magnesium 1.4 mg/dL (1.8-2.4); Potassium 3.9 mmol/L (3.5-5.1); Sodium 137 mmol/L (136-145); Total Protein 6.9 g/dL (6.4-8.2)
[2018-11-30 08:57] LABS: Anisocytosis 1+; Polychromasia Present
[2018-12-12] MEDS: Normal Saline Flush 10 ML SYR IVP (13:20)
[2018-12-12 13:51] LABS: Abs Immature Grans 0.01 k/cumm (0.0-0.09); Absolute Eosinophil Count 0.01 k/cumm (0.0-0.7); Absolute Monocyte Count 0.18 k/cumm (0.11-0.7); Absolute Neutrophil Count 1.71 k/cumm (1.2-6.7); Eosinophils % 0.4; HCT 26.4 % (36.0-46.0); HGB 8.7 g/dL (12.0-15.5); Immature Grans % 0.4; Lymphocytes % 17.3; Mean Corpuscular Hemoglobin 32.8 pg (27.0-33.0); Mean Corpuscular Volume 99.6 fL (80-95); Mean Platelet Volume 10.3 fL (8.0-11.0); Monocytes % 7.8; Neutrophils % 74.1; RBC 2.65 m/cumm (4.00-5.20); RBC Distribution Width 16.4 % (11.7-14.6); White Blood Cell Count 2.31 k/cumm (4.4-10.8)
[2018-12-12 14:05] LABS: Anisocytosis 1+; Diff Comment RBC Morph Reviewed; Platelet Count 59 x1000/uL (130-400)
[2018-12-12 14:07] LABS: ALT 16 U/L (12-78); AST 10 U/L (15-37); Albumin 3.3 g/dL (3.4-5.0); Alkaline Phosphatase 62 U/L (46-116); Anion Gap 9.6 mmol/L (3-11); BUN 9 mg/dL (7-18); Bilirubin, Total 0.4 mg/dL (0.2-1.0); CO2 26.4 mmol/L (21.0-32.0); CREATININE 0.44 mg/dL (0.55-1.02); Calcium 8.8 mg/dL (8.5-10.1); Chloride 101 mmol/L (98-107); Glucose 98 mg/dL (70-100); Potassium 3.6 mmol/L (3.5-5.1); Sodium 137 mmol/L (136-145); Total Protein 6.7 g/dL (6.4-8.2)
[2018-12-19] MEDS: Normal Saline Flush 10 ML SYR IVP (09:10)
[2018-12-19 09:46] LABS: ALT 11 U/L (12-78); AST 8 U/L (15-37); Albumin 3.2 g/dL (3.4-5.0); Alkaline Phosphatase 63 U/L (46-116); Anion Gap 10.3 mmol/L (3-11); BUN 4 mg/dL (7-18); Bilirubin, Total 0.4 mg/dL (0.2-1.0); CO2 26.7 mmol/L (21.0-32.0); CREATININE 0.58 mg/dL (0.55-1.02); Calcium 9.1 mg/dL (8.5-10.1); Chloride 100 mmol/L (98-107); Glucose 165 mg/dL (70-100); Magnesium 1.1 mg/dL (1.8-2.4); Sodium 137 mmol/L (136-145); Total Protein 6.9 g/dL (6.4-8.2)
[2018-12-19 09:58] LABS: Absolute Eosinophil Count 0.03 k/cumm (0.0-0.7); Absolute Lymphocyte Count 0.53 k/cumm (1.2-3.4); Absolute Monocyte Count 0.35 k/cumm (0.11-0.7); Absolute Neutrophil Count 0.98 k/cumm (1.2-6.7); Eosinophils % 1.6; HCT 27.4 % (36.0-46.0); HGB 9.3 g/dL (12.0-15.5); Mean Corp. HGB Concentration 33.9 g/dL (32.0-36.0); Mean Corpuscular Hemoglobin 33.1 pg (27.0-33.0); Mean Corpuscular Volume 97.5 fL (80-95); Mean Platelet Volume 10.4 fL (8.0-11.0); Monocytes % 18.5; Neutrophils % 51.9; RBC 2.81 m/cumm (4.00-5.20); RBC Distribution Width 17.5 % (11.7-14.6)
[2018-12-19 10:16] LABS: Anisocytosis 1+; Diff Comment Diff Reviewed; Platelet Count 56 x1000/uL (130-400); White Blood Cell Count 1.89 k/cumm (4.4-10.8)
== END 2018-12-27 23:59 | disposition home or self-care (01) ==
LOC: INF 09:00
PROVIDERS: PCP Family Medicine; Visit Provider Nurse Practitioner Adult Health
DX: C06.0 Malignant neoplasm of cheek mucosa (principal); Z45.2 Encounter for adjustment and management of vascular access device
CPT/HCPCS: 36415; 36591; 80053; 96523; 83735; 85025

== ENCOUNTER 2019-01-27 01:42 | Outpatient (RCR) | payer MEDICAID, SELFPAY ==
[2019-01-03] MEDS: Normal Saline Flush 10 ML SYR IVP (13:22)
[2019-01-03 13:37] LABS: Abs Immature Grans 0.02 k/cumm (0.0-0.09); Absolute Basophil Count 0.01 k/cumm (0.0-0.2); Absolute Eosinophil Count 0.03 k/cumm (0.0-0.7); Absolute Lymphocyte Count 0.45 k/cumm (1.2-3.4); Absolute Monocyte Count 0.41 k/cumm (0.11-0.7); Absolute Neutrophil Count 6.64 k/cumm (1.2-6.7); Basophils % 0.1; Eosinophils % 0.4; HCT 33.2 % (36.0-46.0); Immature Grans % 0.3; Mean Corp. HGB Concentration 33.1 g/dL (32.0-36.0); Mean Corpuscular Hemoglobin 33.7 pg (27.0-33.0); Mean Corpuscular Volume 101.8 fL (80-95); Mean Platelet Volume 10.1 fL (8.0-11.0); Monocytes % 5.4; Neutrophils % 87.8; Platelet Count 197 x1000/uL (130-400); RBC 3.26 m/cumm (4.00-5.20); RBC Distribution Width 19.7 % (11.7-14.6); White Blood Cell Count 7.56 k/cumm (4.4-10.8)
[2019-01-03 13:55] LABS: Anisocytosis 2+; Diff Comment Diff Reviewed; Hypochromasia 2+; Polychromasia Present
[2019-01-03 13:57] LABS: ALT 12 U/L (12-78); AST 12 U/L (15-37); Albumin 3.4 g/dL (3.4-5.0); Alkaline Phosphatase 121 U/L (46-116); BUN 8 mg/dL (7-18); Bilirubin, Total 1.1 mg/dL (0.2-1.0); CREATININE 0.58 mg/dL (0.55-1.02); Calcium 9.4 mg/dL (8.5-10.1); Chloride 95 mmol/L (98-107); Glucose 132 mg/dL (70-100); Magnesium 1.4 mg/dL (1.8-2.4); Sodium 134 mmol/L (136-145); Total Protein 7.3 g/dL (6.4-8.2)
[2019-01-17 09:30] LABS: Abs Immature Grans 0.09 k/cumm (0.0-0.09); Absolute Basophil Count 0.02 k/cumm (0.0-0.2); Absolute Neutrophil Count 16.34 k/cumm (1.2-6.7); Basophils % 0.1; Eosinophils % 0.6; Immature Grans % 0.5; Lymphocytes % 4.3; Mean Corp. HGB Concentration 33.3 g/dL (32.0-36.0); Mean Corpuscular Hemoglobin 35.6 pg (27.0-33.0); Mean Corpuscular Volume 106.8 fL (80-95); Mean Platelet Volume 10.5 fL (8.0-11.0); Monocytes % 7.1; RBC 3.37 m/cumm (4.00-5.20); RBC Distribution Width 19.3 % (11.7-14.6); White Blood Cell Count 18.69 k/cumm (4.4-10.8)
[2019-01-17 09:33] LABS: Absolute Eosinophil Count 0.11 k/cumm (0.0-0.7); Absolute Monocyte Count 1.33 k/cumm (0.11-0.7)
[2019-01-17] MEDS: Normal Saline Flush 10 ML SYR IVP (09:39)
[2019-01-17 09:41] LABS: ALT 11 U/L (12-78); AST 7 U/L (15-37); Albumin 2.9 g/dL (3.4-5.0); Alkaline Phosphatase 108 U/L (46-116); Anion Gap 9.2 mmol/L (3-11); BUN 6 mg/dL (7-18); Bilirubin, Total 1.1 mg/dL (0.2-1.0); CO2 26.8 mmol/L (21.0-32.0); CREATININE 0.63 mg/dL (0.55-1.02); Chloride 97 mmol/L (98-107); Glucose 143 mg/dL (70-100); Magnesium 1.3 mg/dL (1.8-2.4); Sodium 133 mmol/L (136-145); Total Protein 6.6 g/dL (6.4-8.2)
[2019-01-17 09:44] LABS: Diff Comment Diff Reviewed; Neutrophils % 87.4
[2019-01-17 09:45] LABS: Anisocytosis 2+; Macrocytosis 2+; Platelet Count 260 x1000/uL (130-400)
[2019-01-27 13:23] LABS: Abs Immature Grans 0.06 k/cumm (0.0-0.09); Absolute Monocyte Count 1.19 k/cumm (0.11-0.7); Basophils % 0.2; Eosinophils % 1.9; HGB 10.7 g/dL (12.0-15.5); Immature Grans % 0.5; Mean Corp. HGB Concentration 32.4 g/dL (32.0-36.0); Mean Corpuscular Hemoglobin 36.1 pg (27.0-33.0); Mean Corpuscular Volume 111.5 fL (80-95); Mean Platelet Volume 10.1 fL (8.0-11.0); Monocytes % 9.2; Neutrophils % 81.2; Platelet Count 243 x1000/uL (130-400); RBC 2.96 m/cumm (4.00-5.20); RBC Distribution Width 17.6 % (11.7-14.6); White Blood Cell Count 12.94 k/cumm (4.4-10.8)
[2019-01-27 13:30] LABS: Absolute Basophil Count 0.03 k/cumm (0.0-0.2); Absolute Eosinophil Count 0.25 k/cumm (0.0-0.7); Absolute Lymphocyte Count 0.91 k/cumm (1.2-3.4); Absolute Neutrophil Count 10.51 k/cumm (1.2-6.7)
[2019-01-27] MEDS: Normal Saline Flush 10 ML SYR IVP (13:34)
[2019-01-27 13:37] LABS: ALT 10 U/L (12-78); AST 11 U/L (15-37); Albumin 2.5 g/dL (3.4-5.0); Alkaline Phosphatase 115 U/L (46-116); Anion Gap 6.3 mmol/L (3-11); BUN 5 mg/dL (7-18); Bilirubin, Total 0.4 mg/dL (0.2-1.0); CO2 27.7 mmol/L (21.0-32.0); CREATININE 0.53 mg/dL (0.55-1.02); Calcium 8.6 mg/dL (8.5-10.1); Chloride 103 mmol/L (98-107); Glucose 102 mg/dL (70-100); Magnesium 1.5 mg/dL (1.8-2.4); Potassium 3.9 mmol/L (3.5-5.1); Sodium 137 mmol/L (136-145); Total Protein 5.8 g/dL (6.4-8.2)
[2019-01-27 13:50] LABS: Diff Comment RBC Morph Reviewed
[2019-01-27 13:51] LABS: Anisocytosis 2+; Basophilic Stippling Present; Macrocytosis 2+; Polychromasia Present
== END 2019-01-27 23:59 | disposition home or self-care (01) ==
LOC: INF 01:42
PROVIDERS: Internal Medicine Hematology & Oncology; PCP Family Medicine; Visit Provider Nurse Practitioner Adult Health
DX: C06.0 Malignant neoplasm of cheek mucosa (principal); Z45.2 Encounter for adjustment and management of vascular access device
CPT/HCPCS: 36415; 36591; 80053; 96523; 83735; 85025

== ENCOUNTER 2019-02-10 02:28 | Outpatient (RCR) | payer MEDICAID, SELFPAY ==
[2019-02-10] MEDS: Normal Saline Flush 10 ML SYR IVP (12:55)
[2019-02-10 13:21] LABS: Abs Immature Grans 0.05 k/cumm (0.0-0.09); Absolute Basophil Count 0.02 k/cumm (0.0-0.2); Absolute Eosinophil Count 0.25 k/cumm (0.0-0.7); Absolute Lymphocyte Count 1.04 k/cumm (1.2-3.4); Basophils % 0.2; Eosinophils % 2.1; HCT 36.4 % (36.0-46.0); HGB 11.9 g/dL (12.0-15.5); Immature Grans % 0.4; Lymphocytes % 8.9; Mean Corp. HGB Concentration 32.7 g/dL (32.0-36.0); Mean Corpuscular Hemoglobin 36.7 pg (27.0-33.0); Mean Corpuscular Volume 112.3 fL (80-95); Mean Platelet Volume 10.8 fL (8.0-11.0); Neutrophils % 80.4; Platelet Count 192 x1000/uL (130-400); RBC 3.24 m/cumm (4.00-5.20); RBC Distribution Width 13.9 % (11.7-14.6); White Blood Cell Count 11.69 k/cumm (4.4-10.8)
[2019-02-10 13:24] LABS: Absolute Monocyte Count 0.94 k/cumm (0.11-0.7)
[2019-02-10 13:33] LABS: ALT 8 U/L (12-78); AST 10 U/L (15-37); Albumin 2.4 g/dL (3.4-5.0); Alkaline Phosphatase 122 U/L (46-116); Anion Gap 12.6 mmol/L (3-11); BUN 13 mg/dL (7-18); Bilirubin, Total 0.8 mg/dL (0.2-1.0); CO2 24.4 mmol/L (21.0-32.0); CREATININE 0.75 mg/dL (0.55-1.02); Calcium 8.7 mg/dL (8.5-10.1); Chloride 99 mmol/L (98-107); Glucose 131 mg/dL (70-100); Potassium 3.3 mmol/L (3.5-5.1); Sodium 136 mmol/L (136-145); Total Protein 5.6 g/dL (6.4-8.2)
== END 2019-02-26 23:59 | disposition home or self-care (01) ==
LOC: INF 02:28
PROVIDERS: PCP Family Medicine; Visit Provider Nurse Practitioner Adult Health
DX: C06.0 Malignant neoplasm of cheek mucosa (principal); Z45.2 Encounter for adjustment and management of vascular access device
CPT/HCPCS: 36591; 80053; 85025

== ENCOUNTER 2019-04-13 00:28 | Outpatient (RCR) | payer MEDICAID, SELFPAY ==
[2019-04-13] MEDS: Normal Saline Flush 10 ML SYR IVP (09:57)
[2019-04-13 10:17] LABS: Abs Immature Grans 0.03 k/cumm (0.0-0.09); Absolute Basophil Count 0.02 k/cumm (0.0-0.2); Absolute Eosinophil Count 0.11 k/cumm (0.0-0.7); Absolute Lymphocyte Count 1.11 k/cumm (1.2-3.4); Absolute Monocyte Count 0.72 k/cumm (0.11-0.7); Basophils % 0.2; HCT 31.5 % (36.0-46.0); HGB 10.6 g/dL (12.0-15.5); Immature Grans % 0.3; Lymphocytes % 9.8; Mean Corp. HGB Concentration 33.7 g/dL (32.0-36.0); Mean Corpuscular Hemoglobin 37.5 pg (27.0-33.0); Mean Corpuscular Volume 111.3 fL (80-95); Mean Platelet Volume 10.6 fL (8.0-11.0); Monocytes % 6.3; Neutrophils % 82.4; Platelet Count 212 x1000/uL (130-400); RBC 2.83 m/cumm (4.00-5.20); RBC Distribution Width 17.5 % (11.7-14.6); White Blood Cell Count 11.35 k/cumm (4.4-10.8)
[2019-04-13 10:23] LABS: Absolute Neutrophil Count 9.35 k/cumm (1.2-6.7)
[2019-04-13 10:25] LABS: ALT 19 U/L (12-78); AST 15 U/L (15-37); Albumin 1.8 g/dL (3.4-5.0); Alkaline Phosphatase 142 U/L (46-116); Anion Gap 11.4 mmol/L (3-11); BUN 3 mg/dL (7-18); Bilirubin, Total 0.4 mg/dL (0.2-1.0); CO2 25.6 mmol/L (21.0-32.0); CREATININE 0.66 mg/dL (0.55-1.02); Calcium 7.9 mg/dL (8.5-10.1); Chloride 105 mmol/L (98-107); Glucose 112 mg/dL (70-100); Potassium 3.3 mmol/L (3.5-5.1); Sodium 142 mmol/L (136-145); Total Protein 5.2 g/dL (6.4-8.2)
[2019-04-13 10:38] LABS: Diff Comment RBC Morph Reviewed
[2019-04-13 10:39] LABS: Hypochromasia 2+; Macrocytosis 3+; Polychromasia Present
== END 2019-04-29 23:59 | disposition home or self-care (01) ==
LOC: INF 00:28
PROVIDERS: PCP Family Medicine; Visit Provider Nurse Practitioner Adult Health
DX: C06.0 Malignant neoplasm of cheek mucosa (principal); Z45.2 Encounter for adjustment and management of vascular access device
CPT/HCPCS: 36591; 80053; 85025

== ENCOUNTER 2019-06-26 01:58 | Outpatient (RCR) | payer MEDICAID, SELFPAY ==
[2019-06-02] MEDS: Heparin 500 UNITS/5 ML SYRINGE (13:09)
[2019-06-02] MEDS: Normal Saline Flush 10 ML SYR IVP (13:09)
[2019-06-02 13:59] LABS: Absolute Basophil Count 0.01 k/cumm (0.0-0.2); Absolute Eosinophil Count 0.13 k/cumm (0.0-0.7); Absolute Lymphocyte Count 1.26 k/cumm (1.2-3.4); Absolute Monocyte Count 0.45 k/cumm (0.11-0.7); Absolute Neutrophil Count 1.97 k/cumm (1.2-6.7); Basophils % 0.3; Eosinophils % 3.4; HCT 35.5 % (36.0-46.0); Mean Corp. HGB Concentration 33.8 g/dL (32.0-36.0); Mean Corpuscular Hemoglobin 38.2 pg (27.0-33.0); Mean Corpuscular Volume 113.1 fL (80-95); Mean Platelet Volume 10.8 fL (8.0-11.0); Monocytes % 11.8; Neutrophils % 51.5; Platelet Count 175 x1000/uL (130-400); RBC 3.14 m/cumm (4.00-5.20); RBC Distribution Width 12.7 % (11.7-14.6); White Blood Cell Count 3.82 k/cumm (4.4-10.8)
[2019-06-02 14:37] LABS: ALT 11 U/L (14-59); AST 24 U/L (15-37); Albumin 2.3 g/dL (3.4-5.0); Alkaline Phosphatase 118 U/L (46-116); Anion Gap 10.3 mmol/L (3-11); BUN 4 mg/dL (7-18); Bilirubin, Total 0.3 mg/dL (0.2-1.0); CO2 24.7 mmol/L (21.0-32.0); CREATININE 0.49 mg/dL (0.55-1.02); Calcium 8.1 mg/dL (8.5-10.1); Chloride 105 mmol/L (98-107); Glucose 112 mg/dL (70-100); Potassium 4.3 mmol/L (3.5-5.1); Sodium 140 mmol/L (136-145); TSH 6.19 uIU/mL (0.36-3.74); Total Protein 5.6 g/dL (6.4-8.2)
[2019-06-02 14:40] LABS: Hypochromasia 1+; Macrocytosis 3+
[2019-06-02 15:11] LABS: FREE T4 1.48 ng/dL (0.76-1.46)
[2019-06-26] MEDS: Normal Saline Flush 10 ML SYR IVP (07:50)
[2019-06-26 07:53] LABS: Abs Immature Grans 0.01 k/cumm (0.0-0.09); Absolute Basophil Count 0.02 k/cumm (0.0-0.2); Absolute Eosinophil Count 0.16 k/cumm (0.0-0.7); Absolute Lymphocyte Count 0.98 k/cumm (1.2-3.4); Absolute Monocyte Count 0.55 k/cumm (0.11-0.7); Absolute Neutrophil Count 4.19 k/cumm (1.2-6.7); Basophils % 0.3; Eosinophils % 2.7; HCT 37.6 % (36.0-46.0); HGB 12.7 g/dL (12.0-15.5); Immature Grans % 0.2; Lymphocytes % 16.6; Mean Corp. HGB Concentration 33.8 g/dL (32.0-36.0); Mean Corpuscular Hemoglobin 36.5 pg (27.0-33.0); Mean Platelet Volume 10.2 fL (8.0-11.0); Monocytes % 9.3; Neutrophils % 70.9; Platelet Count 188 x1000/uL (130-400); RBC 3.48 m/cumm (4.00-5.20); RBC Distribution Width 13.1 % (11.7-14.6); White Blood Cell Count 5.91 k/cumm (4.4-10.8)
[2019-06-26 08:14] LABS: ALT 13 U/L (14-59); AST 19 U/L (15-37); Albumin 2.3 g/dL (3.4-5.0); Alkaline Phosphatase 132 U/L (46-116); Anion Gap 8.8 mmol/L (3-11); BUN 5 mg/dL (7-18); Bilirubin, Total 0.3 mg/dL (0.2-1.0); CO2 26.2 mmol/L (21.0-32.0); CREATININE 0.55 mg/dL (0.55-1.02); Calcium 8.6 mg/dL (8.5-10.1); Chloride 106 mmol/L (98-107); FREE T4 1.49 ng/dL (0.76-1.46); Glucose 83 mg/dL (70-100); Potassium 4.2 mmol/L (3.5-5.1); Sodium 141 mmol/L (136-145); TSH 6.24 uIU/mL (0.36-3.74); Total Protein 5.8 g/dL (6.4-8.2)
[2019-06-26 08:19] LABS: Diff Comment RBC Morph Reviewed; Hypochromasia 1+; Macrocytosis 2+
== END 2019-06-29 23:59 | disposition home or self-care (01) ==
LOC: INF 01:58
PROVIDERS: PCP Family Medicine; Visit Provider Nurse Practitioner Adult Health
DX: C06.0 Malignant neoplasm of cheek mucosa (principal); Z45.2 Encounter for adjustment and management of vascular access device
CPT/HCPCS: 36415; 36591; 80053; 96523; 84439; 84443; 85025

== ENCOUNTER 2019-06-26 03:21 | Emergency (ER) | payer MEDICAID, SELFPAY ==
[2019-06-26 03:25] VITALS: BP 114/83; PULSE 106; RESP 16; TEMP 37; O2SAT 98
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
== END 2019-06-26 04:55 | disposition home or self-care (01) ==
LOC: ER 04:43
PROVIDERS: Emergency Provider Student in an Organized Health Care Education/Training Program; PCP Family Medicine
DX: Z43.1 Encounter for attention to gastrostomy (principal); C06.2 Malignant neoplasm of retromolar area; F17.210 Nicotine dependence, cigarettes, uncomplicated
CPT/HCPCS: 43762

== ENCOUNTER 2019-07-17 01:54 | Outpatient (RCR) | payer MEDICAID, SELFPAY ==
[2019-07-17 08:35] LABS: Abs Immature Grans 0.01 k/cumm (0.0-0.09); Absolute Basophil Count 0.01 k/cumm (0.0-0.2); Absolute Eosinophil Count 0.16 k/cumm (0.0-0.7); Absolute Lymphocyte Count 1.06 k/cumm (1.2-3.4); Absolute Neutrophil Count 4.97 k/cumm (1.2-6.7); Basophils % 0.1; Eosinophils % 2.3; HCT 41.4 % (36.0-46.0); HGB 13.9 g/dL (12.0-15.5); Immature Grans % 0.1; Lymphocytes % 15.6; Mean Corp. HGB Concentration 33.6 g/dL (32.0-36.0); Mean Corpuscular Hemoglobin 35.9 pg (27.0-33.0); Mean Platelet Volume 10.8 fL (8.0-11.0); Monocytes % 8.8; Neutrophils % 73.1; Platelet Count 130 x1000/uL (130-400); RBC 3.87 m/cumm (4.00-5.20); RBC Distribution Width 14.7 % (11.7-14.6); White Blood Cell Count 6.81 k/cumm (4.4-10.8)
[2019-07-17] MEDS: Normal Saline Flush 10 ML SYR IVP (08:37)
[2019-07-17 08:57] LABS: ALT 19 U/L (14-59); AST 39 U/L (15-37); Albumin 2.4 g/dL (3.4-5.0); Alkaline Phosphatase 195 U/L (46-116); Anion Gap 10.8 mmol/L (3-11); BUN 3 mg/dL (7-18); Bilirubin, Total 0.8 mg/dL (0.2-1.0); CO2 24.2 mmol/L (21.0-32.0); CREATININE 0.61 mg/dL (0.55-1.02); Calcium 8.4 mg/dL (8.5-10.1); Chloride 104 mmol/L (98-107); FREE T4 1.96 ng/dL (0.76-1.46); Glucose 93 mg/dL (70-100); Sodium 139 mmol/L (136-145); TSH 3.97 uIU/mL (0.36-3.74); Total Protein 6.2 g/dL (6.4-8.2)
== END 2019-07-29 23:59 | disposition home or self-care (01) ==
LOC: INF 01:54
PROVIDERS: PCP Family Medicine; Visit Provider Internal Medicine Hematology & Oncology
DX: C06.0 Malignant neoplasm of cheek mucosa (principal); Z45.2 Encounter for adjustment and management of vascular access device
CPT/HCPCS: 36415; 80053; 96523; 84439; 84443; 85025

== ENCOUNTER 2019-08-07 07:49 | Outpatient (RCR) | payer MEDICAID, SELFPAY ==
[2019-08-07] MEDS: Normal Saline Flush 10 ML SYR IVP (12:31)
[2019-08-07 12:58] LABS: Abs Immature Grans 0.02 k/cumm (0.0-0.09); Absolute Basophil Count 0.01 k/cumm (0.0-0.2); Absolute Eosinophil Count 0.07 k/cumm (0.0-0.7); Absolute Lymphocyte Count 0.82 k/cumm (1.2-3.4); Absolute Monocyte Count 0.59 k/cumm (0.11-0.7); Absolute Neutrophil Count 6.32 k/cumm (1.2-6.7); Basophils % 0.1; Eosinophils % 0.9; HCT 33.6 % (36.0-46.0); HGB 11.3 g/dL (12.0-15.5); Immature Grans % 0.3; Lymphocytes % 10.5; Mean Corp. HGB Concentration 33.6 g/dL (32.0-36.0); Mean Corpuscular Hemoglobin 35.4 pg (27.0-33.0); Mean Corpuscular Volume 105.3 fL (80-95); Mean Platelet Volume 11.8 fL (8.0-11.0); Monocytes % 7.5; Neutrophils % 80.7; Platelet Count 150 x1000/uL (130-400); RBC 3.19 m/cumm (4.00-5.20); RBC Distribution Width 14.5 % (11.7-14.6); White Blood Cell Count 7.83 k/cumm (4.4-10.8)
[2019-08-07 13:12] LABS: ALT 12 U/L (14-59); AST 28 U/L (15-37); Albumin 2.1 g/dL (3.4-5.0); Alkaline Phosphatase 168 U/L (46-116); BUN 9 mg/dL (7-18); CREATININE 0.55 mg/dL (0.55-1.02); Calcium 8.4 mg/dL (8.5-10.1); Chloride 99 mmol/L (98-107); Glucose 90 mg/dL (74-106); Sodium 134 mmol/L (136-145); TSH 0.57 uIU/mL (0.36-3.74); Total Protein 5.6 g/dL (6.4-8.2)
== END 2019-08-29 23:59 | disposition home or self-care (01) ==
LOC: INF 07:49
PROVIDERS: PCP Family Medicine; Visit Provider Nurse Practitioner Adult Health
DX: C06.0 Malignant neoplasm of cheek mucosa (principal); Z45.2 Encounter for adjustment and management of vascular access device
CPT/HCPCS: 36591; 80053; 84439; 84443; 85025

== ENCOUNTER 2019-09-06 01:00 | Outpatient (CLI) | payer MEDICAID, SELFPAY ==
--- NOTE | 2019-09-06 15:05 | DI.US_ITS ---
EXAM: US LOWER EXTREMITY VENOUS LT CLINICAL HISTORY: IMAGING ABNORMALITY, R93.89, LT ILIAC ABNORMALITY ON CT, ? DVT TECHNIQUE: Ultrasound performed using standard protocol. COMPARISON: CT CHEST ABDOMEN PELVI from 09/04/2019 FINDINGS: The common iliac vein and the majority of the external iliac vein was not able to be visualized. Thr ombus is visible in the distal common iliac vein and extending through the common femoral vein throug h the superficial femoral vein to the level of the popliteal vein. A segment of popliteal vein is fr ee of thrombus. There is a small amount of thrombus seen in the distal popliteal vein. The posterio r tibial veins are free of thrombus. No Carter's cyst is seen. No superficial venous thrombosis is s een. IMPRESSION: Deep venous thrombosis extending from the distal external iliac vein through the popliteal vein.
== END 2019-09-06 01:20 ==
PROVIDERS: PCP Family Medicine; Visit Provider Internal Medicine Hematology & Oncology
DX: I82.422 Acute embolism and thrombosis of left iliac vein (principal); I82.432 Acute embolism and thrombosis of left popliteal vein
CPT/HCPCS: 93971

== ENCOUNTER 2019-10-02 02:18 | Outpatient (RCR) | payer MEDICAID, SELFPAY ==
[2019-10-02 09:31] LABS: Abs Immature Grans 0.03 k/cumm (0.0-0.09); Absolute Basophil Count 0.02 k/cumm (0.0-0.2); Absolute Eosinophil Count 0.31 k/cumm (0.0-0.7); Absolute Lymphocyte Count 1.36 k/cumm (1.2-3.4); Absolute Monocyte Count 0.83 k/cumm (0.11-0.7); Absolute Neutrophil Count 7.47 k/cumm (1.2-6.7); Basophils % 0.2; Eosinophils % 3.1; HCT 39.7 % (36.0-46.0); HGB 13.1 g/dL (12.0-15.5); Immature Grans % 0.3 %; Lymphocytes % 13.6; Mean Corpuscular Hemoglobin 36.4 pg (27.0-33.0); Mean Corpuscular Volume 110.3 fL (80-95); Mean Platelet Volume 11.2 fL (8.0-11.0); Monocytes % 8.3; Neutrophils % 74.5; Platelet Count 189 x1000/uL (130-400); RBC Distribution Width 13.6 % (11.7-14.6); White Blood Cell Count 10.02 k/cumm (4.4-10.8)
[2019-10-02 09:49] LABS: ALT 6 U/L (14-59); AST 21 U/L (15-37); Albumin 2.2 g/dL (3.4-5.0); Alkaline Phosphatase 180 U/L (46-116); Anion Gap 8.1 mmol/L (3-11); BUN 7 mg/dL (7-18); Bilirubin, Total 0.8 mg/dL (0.2-1.0); CO2 28.9 mmol/L (21.0-32.0); CREATININE 0.63 mg/dL (0.55-1.02); Calcium 8.4 mg/dL (8.5-10.1); Chloride 101 mmol/L (98-107); FREE T4 1.97 ng/dL (0.76-1.46); Glucose 114 mg/dL (74-106); Potassium 3.7 mmol/L (3.5-5.1); Sodium 138 mmol/L (136-145); TSH 1.84 uIU/mL (0.36-3.74)
[2019-10-02] MEDS: Normal Saline Flush 10 ML SYR IVP (09:51)
== END 2019-10-28 23:59 | disposition home or self-care (01) ==
LOC: INF 02:18
PROVIDERS: PCP Family Medicine; Visit Provider Internal Medicine Hematology & Oncology
DX: C06.0 Malignant neoplasm of cheek mucosa (principal); Z45.2 Encounter for adjustment and management of vascular access device
CPT/HCPCS: 36591; 80053; 84439; 84443; 85025

== ENCOUNTER 2019-10-30 01:55 | Outpatient (RCR) | payer MEDICAID, SELFPAY ==
[2019-10-30 09:22] LABS: Abs Immature Grans 0.02 k/cumm (0.0-0.09); Absolute Basophil Count 0.02 k/cumm (0.0-0.2); Absolute Eosinophil Count 0.12 k/cumm (0.0-0.7); Absolute Lymphocyte Count 1.42 k/cumm (1.2-3.4); Absolute Monocyte Count 0.56 k/cumm (0.11-0.7); Absolute Neutrophil Count 7.12 k/cumm (1.2-6.7); Basophils % 0.2; Eosinophils % 1.3; HCT 33.4 % (36.0-46.0); HGB 11.1 g/dL (12.0-15.5); Immature Grans % 0.2 %; Lymphocytes % 15.3; Mean Corp. HGB Concentration 33.2 g/dL (32.0-36.0); Mean Corpuscular Hemoglobin 34.4 pg (27.0-33.0); Mean Corpuscular Volume 103.4 fL (80-95); Mean Platelet Volume 10.9 fL (8.0-11.0); Platelet Count 231 x1000/uL (130-400); RBC 3.23 m/cumm (4.00-5.20); RBC Distribution Width 14.4 % (11.7-14.6); White Blood Cell Count 9.26 k/cumm (4.4-10.8)
[2019-10-30] MEDS: Normal Saline Flush 10 ML SYR IVP (09:24)
[2019-10-30 09:54] LABS: ALT 12 U/L (14-59); AST 24 U/L (15-37); Albumin 2.1 g/dL (3.4-5.0); Alkaline Phosphatase 167 U/L (46-116); Anion Gap 9.9 mmol/L (3-11); BUN 5 mg/dL (7-18); Bilirubin, Total 0.8 mg/dL (0.2-1.0); CO2 26.1 mmol/L (21.0-32.0); CREATININE 0.48 mg/dL (0.55-1.02); Calcium 8.5 mg/dL (8.5-10.1); Chloride 102 mmol/L (98-107); FREE T4 1.84 ng/dL (0.76-1.46); Glucose 109 mg/dL (74-106); Potassium 3.2 mmol/L (3.5-5.1); Sodium 138 mmol/L (136-145); TSH 1.62 uIU/mL (0.36-3.74); Total Protein 5.8 g/dL (6.4-8.2)
== END 2019-11-28 23:59 | disposition home or self-care (01) ==
LOC: INF 01:55
PROVIDERS: PCP Family Medicine; Visit Provider Internal Medicine Hematology & Oncology
DX: C06.0 Malignant neoplasm of cheek mucosa (principal); Z45.2 Encounter for adjustment and management of vascular access device
CPT/HCPCS: 36591; 80053; 84439; 84443; 85025

== ENCOUNTER 2019-12-25 10:06 | Outpatient (RCR) | payer MEDICAID, SELFPAY ==
[2019-12-25 10:29] LABS: Abs Immature Grans 0.05 k/cumm (0.0-0.09); Absolute Lymphocyte Count 0.65 k/cumm (1.2-3.4); Absolute Monocyte Count 0.86 k/cumm (0.11-0.7); Absolute Neutrophil Count 12.86 k/cumm (1.2-6.7); Basophils % 0.1; Eosinophils % 0.8; HCT 29.8 % (36.0-46.0); HGB 9.3 g/dL (12.0-15.5); Immature Grans % 0.3 %; Lymphocytes % 4.5; Mean Corp. HGB Concentration 31.2 g/dL (32.0-36.0); Mean Corpuscular Hemoglobin 35.9 pg (27.0-33.0); Mean Corpuscular Volume 115.1 fL (80-95); Mean Platelet Volume 10.3 fL (8.0-11.0); Monocytes % 5.9; Neutrophils % 88.4; Platelet Count 346 x1000/uL (130-400); RBC 2.59 m/cumm (4.00-5.20); RBC Distribution Width 15.1 % (11.7-14.6); White Blood Cell Count 14.55 k/cumm (4.4-10.8)
[2019-12-25 10:34] LABS: Absolute Basophil Count 0.01 k/cumm (0.0-0.2); Absolute Eosinophil Count 0.12 k/cumm (0.0-0.7)
[2019-12-25 10:48] LABS: Basophilic Stippling Present; Diff Comment RBC Morph Reviewed; Macrocytosis 2+; Polychromasia Present
[2019-12-25 10:57] LABS: ALT 10 U/L (14-59); AST 17 U/L (15-37); Albumin 1.6 g/dL (3.4-5.0); Alkaline Phosphatase 128 U/L (46-116); Anion Gap 6.2 mmol/L (3-11); BUN 5 mg/dL (7-18); Bilirubin, Total 0.6 mg/dL (0.2-1.0); CO2 29.8 mmol/L (21.0-32.0); CREATININE 0.42 mg/dL (0.55-1.02); Calcium 8.6 mg/dL (8.5-10.1); Chloride 102 mmol/L (98-107); FREE T4 1.71 ng/dL (0.76-1.46); Glucose 127 mg/dL (74-106); Potassium 3.6 mmol/L (3.5-5.1); Sodium 138 mmol/L (136-145); TSH 5.65 uIU/mL (0.36-3.74); Total Protein 5.4 g/dL (6.4-8.2)
[2019-12-25] MEDS: Normal Saline Flush 10 ML SYR 30 ML IVP (12:08)
== END 2019-12-28 23:59 | disposition home or self-care (01) ==
LOC: INF 10:06
PROVIDERS: PCP Family Medicine; Visit Provider Internal Medicine Hematology & Oncology
DX: C06.0 Malignant neoplasm of cheek mucosa (principal); Z45.2 Encounter for adjustment and management of vascular access device
CPT/HCPCS: 80053; 84439; 84443; 85025

== ENCOUNTER 2020-01-03 01:16 | Outpatient (CLI) | payer MEDICAID, SELFPAY ==
[2020-01-03] MEDS: Normal Saline - Diluent 50 ML VIAL IV (14:22)
[2020-01-03] MEDS: Omnipaque 350 MG/ML 100 ML BTL IJ (14:23)
[2020-01-03] MEDS: Normal Saline Flush 10 ML SYR IVP (14:29)
--- NOTE | 2020-01-03 14:45 | DI.CT_ITS ---
EXAM: CT FACIAL W CLINICAL HISTORY: RECURRENT LT BUCCAL CA,NEW SKIN LESIONS LT CHEONDOISM, EVAL FOR PROGRESSION. TECHNIQUE: Imaging Protocol: Axial computed tomography images with coronal and sagittal reformatted images were created and reviewed CONTRAST MATERIAL: Intravenous: Omnipaque 350 Contrast volume:100 ml Contrast route:IV - COMPARISON: CT CHEST ABDOMEN PELVI from 09/04/2019 FINDINGS: The previous report mentions resection of portion of the left mandible. 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 There is bony erosion seen extending along the remaining portion of the left ma ndible to the midline. The findings appear similar compared with the previous exam. There has been m arked interval increase in size of the previously noted peripherally enhancing mass in the previous l ocation of the left mandible. It now measures 4.3 cm transverse x 4.7 cm AP x 5.8 cm cephalocaudad. T here is erosion of the lateral wall of the left maxillary sinus and left pterygoid. The left maxillar y sinus is opacified. There is thinning of the left zygoma but no definite destruction. The left mast oid air cells are again noted to be opacified. There is soft tissue density around the ossicles. No b tawnya destruction is seen of these locations. The mass appears to be eroding into the left side of the nasopharynx. There is air within the lesion, which is likely secondary to communication with the muco sa and ulceration. In the left temporal soft tissues, there are now several areas of low-density flores ection, some containing air, which also have an ulcerative appearance. This appears to represent ceph alad extension from the main mass. No skull erosion is seen. Globes, extraocular muscles, optic nerves and retrobulbar fat: Normal. Visualized portions of the brain are unremarkable. There is calcification at the common carotid bulbs bilaterally. There is narrowing of both proximal e xternal carotid arteries but no significant internal carotid artery stenosis. The vertebral arteries show normal diameter. IMPRESSION: Marked interval increase in size of left mandibular fossa mass status post mandibular resection. Ther e is apparent communication with the buccal mucosa as well as cephalad extension in the soft tissues along the left temporal skull. RADIATION DOSE DELIVERED: Total DLP DATA REPOSITORY: All CT scans at this facility are submitted to the National Radiology Data Registry (NRDR) Dose Index Registry (DIR) with the [employer] ([employer]). RADIATION OPTIMIZATION: All CT scans at this facility use at least one of these dose optimization te chniques: automated exposure control; mA and/or kV adjustment per patient size (includes targeted exa ms where dose is matched to clinical indication); or iterative reconstruction.
== END 2020-01-03 01:36 ==
PROVIDERS: PCP Family Medicine; Visit Provider Internal Medicine Hematology & Oncology
DX: D48.1 Neoplasm of uncertain behavior of connective and other soft tissue (principal); C06.0 Malignant neoplasm of cheek mucosa
CPT/HCPCS: 70487; J3490

== ENCOUNTER 2020-01-15 08:30 | Outpatient (RCR) | payer MEDICAID, SELFPAY ==
[2020-01-03] MEDS: Normal Saline Flush 10 ML SYR IVP (14:01)
[2020-01-03] MEDS: Heparin 500 UNITS/5 ML SYRINGE IV (14:02)
[2020-01-03 14:21] LABS: HCT 29.6 % (36.0-46.0); HGB 9.5 g/dL (12.0-15.5); Mean Corp. HGB Concentration 32.1 g/dL (32.0-36.0); Mean Corpuscular Volume 112.1 fL (80-95); Mean Platelet Volume 11.1 fL (8.0-11.0); Platelet Count 216 x1000/uL (130-400); RBC 2.64 m/cumm (4.00-5.20); RBC Distribution Width 14.2 % (11.7-14.6); White Blood Cell Count 14.28 k/cumm (4.4-10.8)
[2020-01-03 14:39] LABS: ALT 43 U/L (14-59); AST 45 U/L (15-37); Albumin 1.6 g/dL (3.4-5.0); Alkaline Phosphatase 282 U/L (46-116); Anion Gap 8.4 mmol/L (3-11); BUN 6 mg/dL (7-18); CO2 26.6 mmol/L (21.0-32.0); CREATININE 0.44 mg/dL (0.55-1.02); Calcium 7.8 mg/dL (8.5-10.1); Chloride 103 mmol/L (98-107); FREE T4 1.48 ng/dL (0.76-1.46); Glucose 148 mg/dL (74-106); Potassium 3.2 mmol/L (3.5-5.1); Sodium 138 mmol/L (136-145); TSH 4.07 uIU/mL (0.36-3.74); Total Protein 5.2 g/dL (6.4-8.2)
[2020-01-03 14:58] LABS: Absolute Lymphocyte Count 0.86 k/cumm (1.2-3.4); Absolute Monocyte Count 0.29 k/cumm (0.11-0.7); Absolute Neutrophil Count 13.14 k/cumm (1.2-6.7); Macrocytosis 2+; Polychromasia Present
[2020-01-03 15:00] LABS: Diff Comment Manual Differential
[2020-01-03 15:36] LABS: Vitamin B12 752 pg/mL (193-986)
[2020-01-03 15:42] LABS: Folate > 20.0 ng/mL (8.6-20.0)
[2020-01-15 10:15] LABS: Abs Immature Grans 0.03 k/cumm (0.0-0.09); Absolute Basophil Count 0.03 k/cumm (0.0-0.2); Absolute Lymphocyte Count 0.79 k/cumm (1.2-3.4); Basophils % 0.3; Eosinophils % 0.9; HCT 31.2 % (36.0-46.0); HGB 10.1 g/dL (12.0-15.5); Immature Grans % 0.3 %; Lymphocytes % 6.9; Mean Corp. HGB Concentration 32.4 g/dL (32.0-36.0); Mean Corpuscular Hemoglobin 35.7 pg (27.0-33.0); Mean Corpuscular Volume 110.2 fL (80-95); Mean Platelet Volume 10.6 fL (8.0-11.0); Monocytes % 5.3; Neutrophils % 86.3; Platelet Count 249 x1000/uL (130-400); RBC 2.83 m/cumm (4.00-5.20); RBC Distribution Width 14.2 % (11.7-14.6); White Blood Cell Count 11.39 k/cumm (4.4-10.8)
[2020-01-15] MEDS: Normal Saline Flush 10 ML SYR IVP (10:15)
[2020-01-15 10:16] LABS: Absolute Neutrophil Count 9.83 k/cumm (1.2-6.7)
[2020-01-15 10:28] LABS: ALT 16 U/L (14-59); AST 28 U/L (15-37); Albumin 1.5 g/dL (3.4-5.0); Alkaline Phosphatase 184 U/L (46-116); Anion Gap 7.6 mmol/L (3-11); BUN 5 mg/dL (7-18); Bilirubin, Total 0.6 mg/dL (0.2-1.0); CO2 26.4 mmol/L (21.0-32.0); CREATININE 0.53 mg/dL (0.55-1.02); Chloride 103 mmol/L (98-107); Glucose 122 mg/dL (74-106); Potassium 3.6 mmol/L (3.5-5.1); Sodium 137 mmol/L (136-145); Total Protein 5.2 g/dL (6.4-8.2)
[2020-01-15 10:31] LABS: Diff Comment RBC Morph Reviewed; Macrocytosis 3+; Polychromasia Present
== END 2020-01-28 23:59 | disposition home or self-care (01) ==
LOC: INF 08:30
PROVIDERS: Internal Medicine Hematology & Oncology; PCP Family Medicine; Visit Provider Internal Medicine Hematology & Oncology
DX: C06.0 Malignant neoplasm of cheek mucosa (principal); Z45.2 Encounter for adjustment and management of vascular access device; E43 Unspecified severe protein-calorie malnutrition; F32.9 Major depressive disorder, single episode, unspecified
CPT/HCPCS: 36591; 80053; 82607; 82746; 84439; 84443; 85025

== ENCOUNTER 2020-02-26 01:51 | Outpatient (RCR) | payer MEDICAID, SELFPAY ==
[2020-02-06 09:56] LABS: Abs Immature Grans 0.03 k/cumm (0.0-0.09); Absolute Basophil Count 0.06 k/cumm (0.0-0.2); Absolute Eosinophil Count 0.09 k/cumm (0.0-0.7); Absolute Lymphocyte Count 1.43 k/cumm (1.2-3.4); Absolute Monocyte Count 0.51 k/cumm (0.11-0.7); Absolute Neutrophil Count 3.28 k/cumm (1.2-6.7); Basophils % 1.1; Eosinophils % 1.7; HCT 30.3 % (36.0-46.0); HGB 9.7 g/dL (12.0-15.5); Immature Grans % 0.6 %; Lymphocytes % 26.5; Mean Corpuscular Volume 109.4 fL (80-95); Mean Platelet Volume 10.8 fL (8.0-11.0); Monocytes % 9.4; Neutrophils % 60.7; Platelet Count 362 x1000/uL (130-400); RBC 2.77 m/cumm (4.00-5.20); RBC Distribution Width 16.1 % (11.7-14.6)
[2020-02-06] MEDS: Normal Saline Flush 10 ML SYR IVP (09:59)
[2020-02-06 10:11] LABS: ALT 11 U/L (14-59); AST 23 U/L (15-37); Albumin 1.5 g/dL (3.4-5.0); Alkaline Phosphatase 180 U/L (46-116); BUN 4 mg/dL (7-18); Bilirubin, Total 0.4 mg/dL (0.2-1.0); CREATININE 0.52 mg/dL (0.55-1.02); Calcium 7.9 mg/dL (8.5-10.1); Chloride 106 mmol/L (98-107); Glucose 96 mg/dL (74-106); Potassium 3.4 mmol/L (3.5-5.1); Sodium 143 mmol/L (136-145); Total Protein 5.1 g/dL (6.4-8.2)
== END 2020-02-27 23:59 | disposition home or self-care (01) ==
LOC: INF 01:51
PROVIDERS: Internal Medicine Hematology & Oncology; PCP Family Medicine; Visit Provider Internal Medicine Hematology & Oncology
DX: C06.0 Malignant neoplasm of cheek mucosa (principal); Z45.2 Encounter for adjustment and management of vascular access device
CPT/HCPCS: 36591; 80053; 85025

== ENCOUNTER 2020-03-04 01:54 | Outpatient (RCR) | payer MEDICAID, SELFPAY ==
[2020-03-04] MEDS: Normal Saline Flush 10 ML SYR IVP (08:49)
[2020-03-04 09:01] LABS: Abs Immature Grans 0.04 k/cumm (0.0-0.09); Absolute Basophil Count 0.02 k/cumm (0.0-0.2); Absolute Lymphocyte Count 1.12 k/cumm (1.2-3.4); Absolute Monocyte Count 0.53 k/cumm (0.11-0.7); Absolute Neutrophil Count 4.19 k/cumm (1.2-6.7); Basophils % 0.3; Eosinophils % 1.7; HCT 29.5 % (36.0-46.0); HGB 9.2 g/dL (12.0-15.5); Immature Grans % 0.7 %; Lymphocytes % 18.7; Mean Corp. HGB Concentration 31.2 g/dL (32.0-36.0); Mean Corpuscular Hemoglobin 33.8 pg (27.0-33.0); Mean Corpuscular Volume 108.5 fL (80-95); Mean Platelet Volume 11.1 fL (8.0-11.0); Monocytes % 8.8; Neutrophils % 69.8; Platelet Count 239 x1000/uL (130-400); RBC 2.72 m/cumm (4.00-5.20); RBC Distribution Width 19.1 % (11.7-14.6)
[2020-03-04 09:09] LABS: ALT 12 U/L (14-59); AST 24 U/L (15-37); Albumin 1.6 g/dL (3.4-5.0); Alkaline Phosphatase 166 U/L (46-116); Anion Gap 8.5 mmol/L (3-11); BUN 6 mg/dL (7-18); Bilirubin, Total 0.4 mg/dL (0.2-1.0); CO2 27.5 mmol/L (21.0-32.0); CREATININE 0.55 mg/dL (0.55-1.02); Calcium 8.3 mg/dL (8.5-10.1); Chloride 106 mmol/L (98-107); Glucose 123 mg/dL (74-106); Potassium 3.5 mmol/L (3.5-5.1); Sodium 142 mmol/L (136-145); Total Protein 5.1 g/dL (6.4-8.2)
== END 2020-03-29 23:59 | disposition home or self-care (01) ==
LOC: INF 01:54
PROVIDERS: PCP Family Medicine; Visit Provider Internal Medicine Hematology & Oncology
DX: C06.0 Malignant neoplasm of cheek mucosa (principal); Z45.2 Encounter for adjustment and management of vascular access device
CPT/HCPCS: 36591; 80053; 85025

== ENCOUNTER 2020-04-01 01:34 | Outpatient (RCR) | payer MEDICAID, SELFPAY ==
[2020-04-01] MEDS: Normal Saline Flush 10 ML SYR IVP (08:30)
[2020-04-01 08:49] LABS: Abs Immature Grans 0.03 10^3/uL (0.0-0.06); Absolute Basophil Count 0.02 10^3/uL (0.0-0.2); Absolute Eosinophil Count 0.09 10^3/uL (0.0-0.7); Absolute Lymphocyte Count 1.15 10^3/uL (1.2-3.4); Absolute Monocyte Count 0.37 10^3/uL (0.1-0.8); Basophils % 0.5; Eosinophils % 2.1; HCT 29.4 % (36.0-46.0); HGB 9.2 g/dL (11.2-15.7); Immature Grans % 0.7; Lymphocytes % 26.4; MCH 35.4 pg (27.0-33.0); MCHC 31.3 % (32.0-36.0); MCV 113.1 fL (80-95); Monocytes % 8.5; Neutrophils % 61.8; Platelet Count 178 10^3/uL (130-400); RDW 17.9 % (11.7-14.6); RDW-SD 75.7 fL; WBC 4.36 10^3/uL (4.4-10.8)
[2020-04-01 08:53] LABS: Absolute Neutrophil Count 2.69 10^3/uL (1.2-6.7)
[2020-04-01 08:59] LABS: ALT 16 U/L (14-59); AST 51 U/L (15-37); Albumin 1.6 g/dL (3.4-5.0); Alkaline Phosphatase 161 U/L (46-116); Anion Gap 10.9 mmol/L (3-11); BUN 4 mg/dL (7-18); Bilirubin, Total 0.4 mg/dL (0.2-1.0); CO2 25.1 mmol/L (21.0-32.0); CREATININE 0.54 mg/dL (0.55-1.02); Chloride 106 mmol/L (98-107); Glucose 99 mg/dL (74-106); Potassium 3.1 mmol/L (3.5-5.1); Sodium 142 mmol/L (136-145); Total Protein 5.3 g/dL (6.4-8.2)
[2020-04-01 09:32] LABS: Diff Comment Agrees w/ Instrument; Macrocytosis 2+
[2020-04-01 09:33] LABS: Basophilic Stippling Present; Hypochromasia 1+
== END 2020-04-29 23:59 | disposition home or self-care (01) ==
LOC: INF 01:34
PROVIDERS: PCP Family Medicine; Visit Provider Internal Medicine Hematology & Oncology
DX: C06.0 Malignant neoplasm of cheek mucosa (principal); Z45.2 Encounter for adjustment and management of vascular access device
CPT/HCPCS: 36591; 80053; 85025

== ENCOUNTER 2020-04-01 12:00 | Outpatient (CLI) | payer MEDICAID, SELFPAY ==
--- NOTE | 2020-04-01 | DI.CT_ITS ---
EXAM: CT FACIAL W CLINICAL HISTORY: SCC OF BUCCAL MUCOSA, ON CHEMO, ? PROGRESSION VS RESPONSE TECHNIQUE: COMPARISON: CT CT FACIAL W from 01/03/2020 FINDINGS: Harmony noriega facial CT April 01 CT examination of the facial region was performed with intravenous infusion 100 cc of Omnipaque 350. The previously noted partially resected left mandibular fossa mass is again seen, no gross interval a change in appearance of partially resected mandible. There is now communication between the oral ca vity and central necrotic portion of the mass. The necrotic mass appears decreased in size in compar jose m with the prior examination and shows decreased peripheral enhancement although some areas of enh ancement do persist along the border of the necrotic region. No definite new involvement of facial b ones, erosion of the lateral wall of left maxillary sinus and left pterygoid is again noted grossly u nchanged. No intracranial involvement. No orbital involvement. IMPRESSION: Interval drainage of necrotic/fluid contents of left mandibular fossa mass. Interval decrease in deg ree of enhancement and mild interval decrease in size of mass in comparison prior study of January 02 0. The borders of the mass are very difficult to delineate from surrounding tissues and exact measur ement of the mass is not possible.
[2020-04-01] MEDS: Omnipaque 350 MG/ML 100 ML BTL IJ (15:52)
[2020-04-01] MEDS: Normal Saline Flush 10 ML SYR IVP (15:53)
[2020-04-01] MEDS: Normal Saline - Diluent 50 ML VIAL IV (15:53)
== END 2020-04-01 12:20 ==
PROVIDERS: PCP Family Medicine; Visit Provider Internal Medicine Hematology & Oncology
DX: C06.0 Malignant neoplasm of cheek mucosa (principal)
CPT/HCPCS: 70487; J3490

== ENCOUNTER 2020-04-09 19:03 | Observation (INO) | payer MEDICAID, SELFPAY ==
[2020-04-09] VITALS (63 sets, daily range): BP systolic 52–104; BP diastolic 28–84; PULSE 91–138; RESP 15–44; TEMP 36.9–38.5; O2SAT 77–100
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
--- NOTE | 2020-04-09 19:00 | RT.EKG_ITS ---
APPROVED REPORT Exam: Resting ECG Patient Location: E HR:101 bpm ECG Measurements Heart Rate 101 AXIS IA [id number] P [id number] QRSd 83 QRS 68 QT 224 T [id number] QTc 291 Conclusion Atrial fibrillation. No acute St/T wave ischemic findings.
--- NOTE | 2020-04-09 19:15 | DI.CT_ITS ---
EXAM: CT HEAD WO CLINICAL HISTORY: AMS. TECHNIQUE: Imaging Protocol: Axial computed tomography images with coronal and sagittal reformatted images were created and reviewed COMPARISON: CT CT CHEST ABDOMEN PELVI from 09/04/[address] FACIAL W from 01/03/[address] FACIAL W from 04/01/2020 FINDINGS: Ventricles and Extra axial spaces: Normal in size and morphology for the patient's age. Hemorrhage: Stable bilateral holo hemispheric chronic subdural hematomas are again seen without evide nce of mass effect on the adjacent brain parenchyma. No acute intracranial hemorrhage. Cerebral parenchyma: Normal. Midline shift: None. Brainstem/Cerebellum: Normal. Calvarium: No acute fracture. There are again seen postsurgical changes of resection of the left man dible with a soft tissue mass seen in the infratemporal fossa and destructive/postsurgical changes in volving the lateral wall of the left maxillary sinus and the medial lateral left pterygoid. The find ing appears stable compared to the prior examinations. There is mucosal thickening seen in the left maxillary sinus. There is opacification of a few ethmoid air cells and mucosal thickening in the rig ht maxillary sinus and sphenoid sinus. Opacification of the mastoid air cells is noted. Visualized Paranasal sinuses/Mastoids: Please see calvarium section. Soft Tissues: Unremarkable. IMPRESSION: No acute intracranial process. RADIATION DOSE DELIVERED: Total DLP DATA REPOSITORY: All CT scans at this facility are submitted to the National Radiology Data Registry (NRDR) Dose Index Registry (DIR) with the [employer] (ACR). RADIATION OPTIMIZATION: All CT scans at this facility use at least one of these dose optimization te chniques: automated exposure control; mA and/or kV adjustment per patient size (includes targeted exa ms where dose is matched to clinical indication); or iterative reconstruction.
[2020-04-09] MEDS: Normal Saline Flush 10 ML SYR IVP ×2 (19:19→21:28)
[2020-04-09] MEDS: ACETAMINOPHEN 1,000 MG/100 ML BTL 400 MG (19:19)
[2020-04-09 19:40] LABS: Abs Immature Grans 0.04 10^3/uL (0.0-0.06); Absolute Lymphocyte Count 0.07 10^3/uL (1.2-3.4); Absolute Monocyte Count 0.21 10^3/uL (0.1-0.8); Immature Grans % 8.5; Lymphocytes % 14.9; MCH 34.3 pg (27.0-33.0); MCHC 31.3 % (32.0-36.0); MCV 109.7 fL (80-95); MPV 12.4 fL (8.0-11.0); Monocytes % 44.7; Neutrophils % 31.9; Platelet Count 41 10^3/uL (130-400); RBC 1.75 10^6/uL (3.93-5.22); RDW 15.9 % (11.7-14.6); RDW-SD 63.4 fL
[2020-04-09 19:41] LABS: Bilirubin Moderate (Negative); Blood Negative (Negative); Clarity Clear (Clear); Glucose 100 mg/dL (Negative); Ketones Negative (Negative); Leukocyte Esterase Negative (Negative); Nitrite Negative (Negative); Specific Gravity 1.015 (1.005-1.025); Urobilinogen >=8.0 EU/dL (Up TO 0.2)
--- NOTE | 2020-04-09 19:44 | NUR.NOTE ---
Nursing Note: Per patient's significant other Tin, patient does own personal hygiene. Patient was cleansed of large bowel movement. Open sore to coccyx and another skin breakdown ready to open. Patient complains of pain when being cleansed in cecilia-area. Patient appears incontinent of stool and urine as when new brief applied under patient began stooling again. Patient did not alert staff. Stool is brown and soft.
[2020-04-09 19:55] LABS: Ammonia 10 umol/L (11-32); WBC 0.47 10^3/uL (4.4-10.8)
[2020-04-09 19:56] LABS: HCT 19.2 % (36.0-46.0); INR 1.5 (0.9-1.1); Prothrombin Time 15.4 sec (9.3-11.0)
[2020-04-09 20:02] LABS: Diff Comment Diff Reviewed
[2020-04-09 20:07] LABS: AST 10 U/L (15-37); Albumin 1.2 g/dL (3.4-5.0); Alkaline Phosphatase 69 U/L (46-116); BUN 7 mg/dL (7-18); Magnesium 1.2 mg/dL (1.8-2.4)
[2020-04-09 20:08] LABS: Nucleated RBC 1 %
[2020-04-09 20:11] LABS: Absolute Neutrophil Count 0.15 10^3/uL (1.2-6.7)
[2020-04-09 20:12] LABS: Macrocytosis 3+
[2020-04-09 20:20] LABS: Epithelial Cells Moderate HPF (Negative); RBC 0-2 HPF (0-2); WBC 0-2 HPF (0-5)
[2020-04-09 20:21] LABS: Bacteria Negative HPF (Negative); C & S Indicated? No; Casts Negative LPF (Negative); Crystals Few Calcium Oxalate HPF (Negative); Mucus Negative (Negative); Other Cells Mod Transitional (Negative)
--- NOTE | 2020-04-09 20:30 | DI.CT_ITS ---
EXAM: CT NECK W CLINICAL HISTORY: mass, neutropenic fever TECHNIQUE: COMPARISON: No exams were available for comparison FINDINGS: CT examination was performed with intravenous infusion of 100 cc of Omnipaque 350. Note is again mad e of extensive resection of the left sub temporal region including a parapharyngeal space taping supervisor space and partial mandibular resection. Poorly defined soft tissue enhancement noted in parapharynge al space which is nonspecific. Residual tumor not excluded. No gross interval change appearance com parison with April 01, again borders of the affected region are very poorly defined. Note is again made of opacification of left maxillary sinus with destruction of the posterior wall and pterygoid. IMPRESSION: No change in appearance in comparison with prior study of April 01, large left parapharyngeal/sub t emporal tumor resection, residual tumor not excluded. No acute abscess or hemorrhage identified.
--- NOTE | 2020-04-09 20:30 | DI.CT_ITS ---
EXAM: CT CHEST/ABD/PEL W CLINICAL HISTORY: neutropenic fever, anemic TECHNIQUE: Imaging Protocol: Axial computed tomography images with coronal and sagittal reformatted images were created and reviewed CONTRAST MATERIAL: Intravenous: Omnipaque 350 Contrast volume:100 mL Oral: No COMPARISON: No exams were available for comparison FINDINGS: Patient motion artifact is present. CHEST: Tracheobronchial tree: Patent where visualized. Mediastinum and Sybil: No dominant adenopathy or fluid collection. Stable mild thickening of the mid a nd distal esophagus. Pulmonary parenchyma: Patchy airspace opacities are seen in the left upper and left lower lobe. No ar chitectural distortion. Pleura: Small left pleural effusion. No pneumothorax. Heart: The heart is not dilated. Moderate coronary artery calcification. Trace pericardial effusion. Aorta: Thoracic aorta non-dilated. Mild atherosclerosis. Lymph nodes: Within normal limits. Bones:Degenerative changes.Osteopenia. Old rib fractures. Tubes, Catheters, and Lines: Tip of the indwelling central venous catheter is in good position at the cavoatrial junction. Soft tissues: Unremarkable. ABDOMEN: Liver: Diffuse fatty infiltration. No measurable mass. Portal, Superior Mesenteric, and Splenic Veins: Unremarkable. Gallbladder and Biliary Tract: No radiodense calculus or dilation. Pancreas: Normal density. No inflammatory process. Pancreatic atrophy. Spleen: Normal. Adrenals: No masses seen. Kidneys: Normal size, contour and axis. No radiodense stones or obstructive uropathy. No masses seen. Abdominal Aorta: Abdominal portion non-dilated. Moderate atherosclerosis. Bowel: There is a large amount of stool seen in the colon particularly in the rectum. There is a mil d amount of surrounding edema. There is moderate wall thickening seen in the ascending colon. No ev idence of obstruction. Appendix is unremarkable. There is a gastric feeding tube in place. Peritoneal Cavity: No ascites, collection or mesenteric inflammatory response. Lymph Nodes: Within normal limits. Bones: Mild degenerative changes. Soft Tissues: Percutaneous gastrostomy tube in place. PELVIS: Bladder: There is a Boyle catheter in place. The urinary bladder is nondistended. Reproductive Organs: Unremarkable as visualized. Lymph Nodes: Within normal limits. Bones: Mild degenerative changes. IMPRESSION: 1. Bowel wall thickening in the right colon suspicious for an inflammatory infectious colitis. 2. Marked distension of the rectum with stool up to 9 cm. Surrounding edema raises a question of mild proctitis. 3. Percutaneous gastrostomy tube in good position. 4. Left upper and left lower lobe pneumonia. 5. Small left pleural effusion. RADIATION DOSE DELIVERED: Total DLP DATA REPOSITORY: All CT scans at this facility are submitted to the National Radiology Data Registry (NRDR) Dose Index Registry (DIR) with the [employer] ([employer]). RADIATION OPTIMIZATION: All CT scans at this facility use at least one of these dose optimization te chniques: automated exposure control; mA and/or kV adjustment per patient size (includes targeted exa ms where dose is matched to clinical indication); or iterative reconstruction.
[2020-04-09 20:32] LABS: ALT 12 U/L (14-59); Anion Gap 15.8 mmol/L (3-11); Bilirubin, Total 0.7 mg/dL (0.2-1.0); CO2 18.2 mmol/L (21.0-32.0); CREATININE 0.64 mg/dL (0.55-1.02); Calcium 7.7 mg/dL (8.5-10.1); Chloride 104 mmol/L (98-107); Glucose 99 mg/dL (74-106); Sodium 138 mmol/L (136-145); TSH 16.21 uIU/mL (0.36-3.74); Total Protein 4.2 g/dL (6.4-8.2)
[2020-04-09 20:34] LABS: Potassium 2.1 mmol/L (3.5-5.1); Troponin I < 0.05 ng/mL (<0.06)
[2020-04-09 21:01] LABS: FREE T4 0.65 ng/dL (0.76-1.46)
[2020-04-09] MEDS: Omnipaque 350 MG/ML 100 ML BTL IJ (21:26)
[2020-04-09] MEDS: Normal Saline - Diluent 50 ML VIAL IV (21:27)
[2020-04-09] MEDS: DOXYCYCLINE 100 MG in Normal Saline 100 ML IVPB (21:44)
[2020-04-09] MEDS: Normal Saline 1,000 ML 1000 ML IV (21:45)
[2020-04-09] MEDS: POTASSIUM CHLORIDE 20 MEQ/100 ML BAG 50 MEQ IVPB (21:48)
[2020-04-09] MEDS: MAGNESIUM SULFATE 2 GM/50 ML BAG IVPB (21:49)
--- NOTE | 2020-04-09 21:52 | DI.VRAD_ITS ---
PROCEDURE INFORMATION: Exam: CT Chest With Contrast Exam date and time: 04/09/2020 21:08 Age: 54 years old Clinical indication: Other: Neutropenic fever, anemic; Patient HX: HX of oral cancer TECHNIQUE: Imaging protocol: Computed tomography of the chest with intravenous contrast. Radiation optimization: All CT scans at this facility use at least one of these dose optimization techniques: automated exposure control; mA and/or kV adjustment per patient size (includes targeted exams where dose is matched to clinical indication); or iterative reconstruction. Contrast material: OMNIPAQUE 350; Contrast volume: 100 ml; Contrast route: INTRAVENOUS (IV); COMPARISON: CT CHEST ABDOMEN PELVI 09/04/2019 12:54 FINDINGS: Tubes, catheters and devices: Right chest wall port in satisfactory position. Lungs: Left-sided pneumonia new since prior. Moderate airspace disease in the left lower lobe. Patchy airspace opacities in the left upper lobe. No convincing right-sided involvement allowing for motion. Pleural space: New small left pleural effusion. No pneumothorax. Heart: Trace pericardial fluid new since prior. Mediastinal space: Mild wall thickening in the mid to distal esophagus is similar to prior. No pathologic dilation. Aorta: No aortic aneurysm. Lymph nodes: No enlarged lymph nodes. Bones/joints: The bones are demineralized. Nonacute rib deformities are again seen. The thoracic spine is intact. Soft tissues: No suspicious lesions. IMPRESSION: 1. Left-sided pneumonia new since prior. 2. New small left pleural effusion. 3. Mild wall thickening in the mid to distal esophagus is similar to prior. No pathologic dilation. 4. Additional findings as described. PROCEDURE INFORMATION: Exam: CT Abdomen And Pelvis With Contrast Exam date and time: 04/09/2020 21:08 Age: 54 years old Clinical indication: Other: Neutropenic fever, anemic; Patient HX: HX of oral cancer TECHNIQUE: Imaging protocol: Computed tomography of the abdomen and pelvis with intravenous contrast. Radiation optimization: All CT scans at this facility use at least one of these dose optimization techniques: automated exposure control; mA and/or kV adjustment per patient size (includes targeted exams where dose is matched to clinical indication); or iterative reconstruction. Contrast material: OMNIPAQUE 350; Contrast volume: 100 ml; Contrast route: INTRAVENOUS (IV); COMPARISON: CT CHEST ABDOMEN PELVI 09/04/2019 12:54 FINDINGS: Liver: Heterogeneous fatty liver. No gross masses. Gallbladder and bile ducts: No calcified stones. No ductal dilation. Pancreas: No ductal dilation. No masses. Spleen: No splenomegaly or focal lesions. Adrenals: No mass. Kidneys and ureters: No hydronephrosis. No renal masses. Stomach and bowel: Percutaneous gastrostomy in the expected position. Marked distention of the rectum containing a large amount of stool, up to 9 cm. Mild surrounding edema posteriorly, questioning a mild proctitis due to constipation. Moderate wall thickening in the right colon. No focal pathology in the small bowel. Appendix: No evidence of appendicitis. Intraperitoneal space: Mild hazy free fluid in the pelvis. Vasculature: Aortic atherosclerosis. No aortic aneurysm. Lymph nodes: See Liver finding. Bladder: Boyle catheter in a decompressed urinary bladder. Reproductive: Unremarkable as visualized. Bones/joints: Unremarkable. No acute fracture. Soft tissues: No suspicious lesions. IMPRESSION: 1. A moderate right colitis is suspected, could be infectious or inflammatory. 2. Percutaneous gastrostomy in the expected position. 3. Marked distention of the rectum containing a large amount of stool, up to 9 cm. Mild surrounding edema posteriorly, questioning a mild proctitis due to constipation. 4. Additional findings as described. Dictated and Authenticated by: Sharri Bolton MD. Ordering:CATINA Kirkpatrick MD
--- NOTE | 2020-04-09 21:59 | DI.VRAD_ITS ---
PROCEDURE INFORMATION: Exam: CT Head Without Contrast Exam date and time: 04/09/2020 7:19 PM Age: 54 years old Clinical indication: AMS; Patient HX: HX of oral cancer TECHNIQUE: Imaging protocol: Computed tomography of the head without contrast. COMPARISON: No relevant prior studies available. FINDINGS: Brain: Bilateral holohemispheric chronic subdural hematomas without significant mass effect on the adjacent brain parenchyma. No midline shift. No evidence for acute transcortical infarct. No mass effect or midline shift. No extra-axial collection. No acute intracranial hemorrhage. Basal cisterns are patent. Ventricles: Normal. No ventriculomegaly. Bones/joints: Unremarkable. No acute fracture. Sinuses: Mucosal thickening involving the left maxillary sinus. Mastoid air cells: Visualized mastoid air cells are well aerated. Soft tissues: Unremarkable. IMPRESSION: No evidence for acute transcortical infarct, acute intracranial hemorrhage, or mass effect. Dictated and Authenticated by: Darin Lara MD. Ordering:CATINA Kirkpatrick MD
[2020-04-09] MEDS: Calcium Gluconate 4.65 MEQ/10 ML VIAL 4.65 MG IVP (22:40)
[2020-04-09 22:47] LABS: Troponin I < 0.05 ng/mL (<0.06)
[2020-04-09] MEDS: PIPERACILLIN/TAZO 3.375 GM in Normal Saline 50 ML IVPB (22:50)
--- NOTE | 2020-04-09 23:14 | DI.VRAD_ITS ---
PROCEDURE INFORMATION: Exam: CT Neck With Contrast Exam date and time: 04/09/2020 9:08 PM Age: 54 years old Clinical indication: Other: Mass, neutropenic fever; Patient HX: HX of oral cancer; Additional info: Neutropenic fever, anemic TECHNIQUE: Imaging protocol: Computed tomography images of the neck with intravenous contrast. Radiation optimization: All CT scans at this facility use at least one of these dose optimization techniques: automated exposure control; mA and/or kV adjustment per patient size (includes targeted exams where dose is matched to clinical indication); or iterative reconstruction. Contrast material: OMNIPAQUE 350; Contrast volume: 100 ml; Contrast route: INTRAVENOUS (IV); COMPARISON: CT NECK WO 04/09/2020 8:40 PM comparison was also made to a CT head dated 04/09/2020. Comparison was also made to a CT facial study dated 04/01/2020. FINDINGS: Brain: Bilateral subdural panhemispheric hematoma/hygromas are partially imaged. The left panhemispheric subdural hematoma/hygroma measures up to 7 mm. The right panhemispheric subdural hematoma/hygroma measures up to 5 mm. No significant midline shift. Sinuses: Near complete opacification of the left maxillary sinus is seen. Several areas of osseous destruction in fracturing are seen along the inferior margin of the left maxillary sinus, ill-defined soft tissue stranding is seen within the left parapharyngeal space, measuring up to 2.2 x 2.0 cm. This is similar when compared to 04/01/2010. Nasopharynx: Unremarkable. Oropharynx: The tongue is deviated leftward, likely secondary to the resection. Hypopharynx: Mild mucosal thickening is seen. Larynx: Unremarkable. Normal epiglottis. Retropharyngeal space: Unremarkable. Submandibular/Parotid glands: Normal. Glands are normal in size. Thyroid: Normal. No enlarged or calcified nodules. Lymph nodes: No new or enlarging lymph nodes within the neck. Trachea: Visualized trachea is unremarkable. Lungs: Unremarkable as visualized. Bones/joints: Postoperative changes of the left partial mandibulectomy, involving the mandibular angle to the level of the mandibular condyle. Extensive resection is also seen throughout the left oral cavity extending into the organic section technical lead space. Soft tissues: Unremarkable. No significant soft tissue swelling. IMPRESSION: 1. Extensive resection within the left parapharyngeal region, organic section technical lead space, with a partial left mandibulectomy, not significantly changed from December 31, 2019, with stranding and air tracking along the resection cavity into the organic section technical lead space and superiorly along the temporalis muscle. An area of ill-defined soft tissue enhancement is seen within the left parapharyngeal space, measuring approximately 2.2 x 1.9 cm. This represents either residual malignancy, recurrence, or possibly postoperative granulation tissue. Attention on subsequent imaging is suggested. 2. Near complete opacification within the left sphenoid sinus, with areas of osseous destruction within the inferior posterior margin the maxillary sinus. While this may represent postsurgical/post-radiation changes, a superimposed infectious process (sinusitis) could also have this appearance in the correct clinical context. 3. Bilateral subdural hematoma/hygromas, not significantly changed in size when compared to 04/01/2020. Dictated and Authenticated by: Dannielle Tay MD. Ordering:CATINA Krikpatrick MD
--- NOTE | 2020-04-09 23:49 | NUR.NOTE ---
Nursing Note: Patient removed from all cardiac monitoring and IV medications. Awaiting transfer to floor.
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
[2020-04-10 00:58] VITALS: BP 84/53; PULSE 95; RESP 18; TEMP 36; O2SAT 97
[2020-04-10] MEDS: Normal Saline Flush 10 ML SYR IVP (02:19)
[2020-04-10] MEDS: POTASSIUM CHLORIDE/0.9% NACL 1,000 ML 150 MEQ IV (02:20)
--- NOTE | 2020-04-10 08:55 | PDOC.CMIN ---
- If Service Date Differs Date of service: 04/10/20 Time of Service: 08:55 Care Management Initial Assess REASON FOR HOSPITALIZATION:: End of life care failure to thrive, is the setting of squamous cell carcinoma with metastisis.
[2020-04-10] MEDS: fentaNYL 50 MCG PATCH TD (09:00)
[2020-04-10] MEDS: fentaNYL 100 MCG PATCH TD (09:02)
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
--- NOTE | 2020-04-10 11:23 | PDOC.CMPRO ---
- If Service Date Differs Date of service: 04/10/20 Time of Service: 11:23 Care Management Progress Note S/O: Harmony is being discharged home with Hospice today at 1300. CM contacted home health and reviewed the plan, and set up transportation through [facility] [employer]. Dr. Khalil met with the family and has completed the orders for Hospice. A> Harmony is a 54 year old female admitted with failure to thrive and end of life care related to Squamous cell carcinoma with metastasis P: Home with hospice and family support today. [facility]. Hospice will admit same day, DOMINIQUE has notified services.
[2020-04-10 14:22] LABS: COVID-19 RT-PCR UVMMC Result Negative (Negative)
--- NOTE | 2020-04-10 16:13 | CHAPLAIN ---
Harmony was admitted last night through the ER. She has been a Palliative patient for a year and a half, and usually sees Dr. Khalil. Plans were made for Harmony to go home with hospice care this afternoon. When visited Harmony this morning, she was in bed with the TV on. I helped her sip water through a straw. She spilled quite a bit of the water on herself. She asked to take her oxygen mask off, and Dr. Khalil said it was Harmony' choice to do that. Harmony responded to some questions and asked her own questions, using short sentences. Some of what she said I could not understand.
== END 2020-04-10 13:09 | disposition home health service (06) ==
LOC: ER 23:45 → MS 04-10 00:44
PROVIDERS: Admitting Provider Internal Medicine; Emergency Provider Physician Assistant; PCP Family Medicine; Visit Provider Internal Medicine
DX: A41.9 Sepsis, unspecified organism (principal); J18.9 Pneumonia, unspecified organism; R65.20 Severe sepsis without septic shock; Z11.59 Encounter for screening for other viral diseases; I82.522 Chronic embolism and thrombosis of left iliac vein; D70.1 Agranulocytosis secondary to cancer chemotherapy; E43 Unspecified severe protein-calorie malnutrition; C06.2 Malignant neoplasm of retromolar area; G92 Toxic encephalopathy; R50.81 Fever presenting with conditions classified elsewhere; C79.49 Secondary malignant neoplasm of other parts of nervous system; Z66 Do not resuscitate; E87.6 Hypokalemia; E83.42 Hypomagnesemia; D61.810 Antineoplastic chemotherapy induced pancytopenia; Z79.01 Long term (current) use of anticoagulants; Z93.1 Gastrostomy status; Z68.1 Body mass index [BMI] 19.9 or less, adult; D69.6 Thrombocytopenia, unspecified; E83.51 Hypocalcemia; F10.20 Alcohol dependence, uncomplicated; F17.200 Nicotine dependence, unspecified, uncomplicated; F32.9 Major depressive disorder, single episode, unspecified; E03.9 Hypothyroidism, unspecified; R65.21 Severe sepsis with septic shock
CPT/HCPCS: 36415; 36430; 51702; 70491; 74177; 80053; 86850; 86900; 86901; 86920; 87040; 87077; 93005; 96361; 96365; 96366; 96367; 96368; 96375; 99217; 99220; 99255; 99285; U0003; 70450; 71260; 81003; 81015; 82140; 83605; 83735; 84439; 84443; 84484; 85025; 85610; 87186; 93010; G0378; J0131; J0610; J2543; J3480; J3490; P9016